=== PATIENT | female | born 1985 | race Caucasian/White ===

== ENCOUNTER 2018-02-11 11:40 | Emergency (ER) | payer MEDICAID, SELFPAY ==
[2018-02-11 11:41] VITALS: BP 127/80; PULSE 118; RESP 17; TEMP 37.2; O2SAT 97; BMI 24.2
[2018-02-11] MEDS: 0.9% Normal Saline 1,000 ML 1000 ML IV (12:36)
[2018-02-11] MEDS: Ondansetron 4 MG/2 ML Vial IV (12:36)
[2018-02-11 12:38] LABS: Absolute Lymphocyte Count 0.68 X10^3/ul (0.83-4.51); Absolute Neutrophil Count 7.9 X10^3/uL (2.0-7.7); Eosinophil# 0.02 X10^3/uL; Eosinophils% 0.2 % (0-5); Hematocrit 33.6 % (37-47); Hemoglobin 10.8 g/dl (12.0-15.0); Lymphocyte # 0.68 X10^3/ul (4.0); Lymphocyte % 7.7 % (19-41); Mean Corp Hgb Conc 32.1 g/gl (32-36); Mean Corpuscular Hgb 27.2 pg (27.0-32.0); Mean Corpuscular Volume 84.6 fL (81-99); Monocyte# 0.31 X10^3/uL; Monocyte% 3.5 % (0-10); Neutrophil # 7.86 X10^3/uL (2.7-7.7); Neutrophil % 88.5 % (47-70); Platelet Count 234 K/mm3 (150-450); RBC Distribution Width CV 13.4 % (11.6-14.6); RBC Distribution Width SD 40.4 fl (35.1-43.9); Red Blood Count 3.97 M/mm3 (4.2-5.4); White Blood Count 8.9 K/mm3 (4.4-11.0)
[2018-02-11 12:40] LABS: POSITIVE COUNT NO; POSITIVE DIFFERENTIAL NO; POSITIVE MORPHOLOGY NO
[2018-02-11 12:42] LABS: Anion Gap 10 (5-15); BUN 6 mg/dL (7-18); BUN/Creat Ratio 13.6 RATIO (10-20); Calcium,Total 8.2 mg/dL (8.5-10.1); Chloride 109 mmol/L (98-107); Creatinine, Serum 0.44 mg/dL (0.55-1.02); EST Glomerular Filtration Rate 176 mL/min (>60); Est Glom Filt Rate - Afr Amer 213 mL/min (>60); Estimated Creatinine Clearance 175.02 ml/min; Glucose 85 mg/dL (74-106); Potassium 3.7 mmol/L (3.5-5.1); Sodium Level 139 mmol/L (136-145)
--- NOTE | 2018-02-11 13:22 | ED.DCSUM_ITS ---
- ER Visit Summary Date of Service: 02/11/18 Chief Complaint: Nausea, vomiting, diarrhea History of Present Illness: The patient is a 32 F who is otherwise healthy. The emergency department nausea, vomiting, diarrhea. The patient is 34 weeks gestation. She is . She states that about 4 this morning, she woke with some mild abdominal cramping and nausea. She then had multiple bouts of loose watery diarrhea. Since then, she has had 3 episodes of vomiting and persistent diarrhea. She has not had blood in the diarrhea or the emesis. She denies any abdominal pain. She has had no vaginal bleeding or discharge. She is still feeling baby move. She denies any other systemic symptoms. Physical Examination: Vital signs reviewed General: Well-nourished, well-developed Head: Normocephalic, atraumatic Eyes: Pupils equal and reactive, extraocular muscles intact Neck, supple, no lymphadenopathy Heart: Regular rate and rhythm Respiratory: No distress, clear bilaterally Abdomen: Soft, nontender, nondistended, no peritoneal signs Back: Nontender Extremities: Nontender, no edema, no cords Skin: Normal color no rash Neuro: Alert and oriented, no focal or lateralizing deficits Test Results: [] Emergency Department Course and Treatment: The patient has a benign abdomen. She is gravid. I do feel that her symptoms are likely viral in nature. IV was established. Patient was given a liter of fluids and Zofran. Labs are unremarkable. With fluids and Zofran her symptoms have almost totally resolved. heart tones were obtained in the 150s and reactive. She is resting comfortably. At this time, due to the patient is safe for discharge. She will be given a short course of Zofran. She will follow up with OB as scheduled. Treatment Plan: [] Disposition: Discharge Impression:. Gastroenteritis This note was generated with [employer] dictation software. It may contain incorrect words, spelling, and punctuation that were not noted in review of the chart prior to signing ED Disposition - Plan for ED Patient: Chief Complaint: Nausea/Vomiting/Diarrhea Instructions: ED Gastroenteritis Viral Prescriptions: Ondansetron [Zofran Odt] 4 mg PO Q8H PRN PRN #10 tab PRN Reason: Nausea Referrals: Care Physician,No Primary [Primary Care Provider] -
[2018-02-11 13:46] VITALS: BP 116/80; PULSE 62; RESP 16; O2SAT 99
[2018-02-11] MEDS: Ondansetron ODT 4 MG Tablet PO (14:12)
== END 2018-02-11 14:11 | disposition home or self-care (01) ==
LOC: ED 12:49
PROVIDERS: Emergency Provider Emergency Medicine
DX: O99.89 Other specified diseases and conditions complicating pregnancy, childbirth and the puerperium (principal); K52.9 Noninfective gastroenteritis and colitis, unspecified; Z3A.34 34 weeks gestation of pregnancy
CPT/HCPCS: 80048; 85025; 96374; 99283; J7030; J2405

== ENCOUNTER 2018-03-31 07:10 | Inpatient (IN) | payer MEDICAID, SELFPAY ==
[2018-03-31 07:20] VITALS: BMI 26.1
[2018-03-31] MEDS: Lactated Ringers 1,000 ML 50 ML IV ×3 (07:40→16:46)
[2018-03-31] MEDS: Oxytocin 30 units/NS 500 ml 30 UNITS/500 ML IV.SOLN IV (07:50)
[2018-03-31 07:58] LABS: Hematocrit 35.7 % (37-47); Hemoglobin 11.3 g/dl (12.0-15.0); Mean Corp Hgb Conc 31.7 g/gl (32-36); Mean Corpuscular Hgb 26.5 pg (27.0-32.0); Mean Corpuscular Volume 83.8 fL (81-99); Mean Platelet Vol. 9.8 fl (6.2-12.0); Platelet Count 221 K/mm3 (150-450); RBC Distribution Width CV 17.5 % (11.6-14.6); RBC Distribution Width SD 53.5 fl (35.1-43.9); Red Blood Count 4.26 M/mm3 (4.2-5.4); White Blood Count 7.3 K/mm3 (4.4-11.0)
[2018-03-31 08:04] LABS: Scan Indicated on CBC? Y/N NO
--- NOTE | 2018-03-31 10:19 | PCM.HP.OB ---
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 Allergies No Known Allergies Allergy (Verified 03/31/18 07:57) Home Medications: Home Medications Docusate Sodium [Colace] 100 mg PO DAILY 01/24/14 Ferrous Sulfate [Iron Supplement] 325 mg PO DAILY 01/24/14 Pnv No.122/Iron/Folic Acid [ Multi Tablet] 1 each PO DAILY 02/11/18 L.acidoph,Paracasei, B.lactis [Probiotic] 1 each PO 03/31/18 PNV, Iron Supp Smoking Status: Never smoker Alcohol: None Number of Fetus(es): 1 Heart Tracing: Baseline 125, moderate variability, + accels, no decels TOCO Analysis: Ctx q 2-5 minutes palpating mild to moderately strong History Past Pregnancies: Past Pregnancies Delivery Date Name GA/Weeks Outcome Route Weight Gender Labor Length Anesthesia Delivery Location Provider FOB 01/25/14 41+1wks Live VAVD 9#3oz Male Epidural [facility] Labs: A+; Abs = Neg screen; Urine Culture = Neg; Urine Tox = Neg; GC/CT = Neg/Neg; Pap = HSIL/+HPV (type 16 +); Zika IgG = Neg; 1st sequential screen = +DS risk (1:50) ===> NIPS = 46XX GBS neg; H/H = 11.4/34.3 --> 9.9/32.2 --> 9.9/33.2; Plt = 244; 1 hour GCT = 99; AFP = Neg Screen; Syphilis = NR; Rubella = Immune; Hep B = Neg; HIV = NR Expected Infant Delivery Method: Spontaneous Vaginal Describe any other labor & delivery plans:: Patient plans for epidural. Desires . Number of Visits: 16 Review of Systems Constitutional: Denies: Chills, Fever, Weight Change HEENT: Denies: Head Aches, Sinus Congestion, Sinus Drainage Cardiovascular: Denies: Chest Pain, Palpitations Respiratory: Denies: Cough, Shortness of breath at rest, Sputum production Gastrointestinal: Denies: Abdominal Pain, Nausea, Vomiting Genitourinary: Denies: Dysuria Musculoskeletal: Denies: Joint Pain, Joint Tenderness Skin: Denies: Rash, Wounds Neurological: Denies: Numbness, Tingling, Focal weakness Psychiatric: Denies: Anxiety, Depression, Homicidal Ideations, Suicidal Ideations Hematologic/ Lymphatic: Denies: Easy Bruising, Easy Bleeding Physical Exam Vitals: See Nursing Note for Vitals - Normotensive and Afebrile General: Alert, Oriented x3, No apparent distress HEENT: Atraumatic, Normocephalic. Negative for: Thyromegaly, Lymphadenopathy Cardiovascular: Regular rate, Regular Rhythm Lungs: Normal air movement Abdomen: Soft, Gravid, Appropriate for Gestational Age Extremities:: No edema Neurological: Deep Tendon Reflexes 2+/4 and Symmetrical, Neuro grossly intact MANAGER FRAUD: Normal external genitalia. Negative for: Vulvar lesions Estimated gestational size: Appropriate for gestational size Presentation: Cephalic Cervix Dilation (cm): 3 Station: -2 Effacement (%): 50 Assessment/Plan All Active Problems Post-term , 40-42 weeks of gestation (Acute) Anemia affecting (Acute) HSIL (high grade squamous intraepithelial lesion) on Pap smear of cervix (Acute) This is a 33 year-old, G [], P [], at 40 weeks gestational age.
--- NOTE | 2018-03-31 10:23 | HP.PCM_ITS ---
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 Allergies No Known Allergies Allergy (Verified 03/31/18 07:57) Home Medications: Home Medications Docusate Sodium [Colace] 100 mg PO DAILY 01/24/14 Ferrous Sulfate [Iron Supplement] 325 mg PO DAILY 01/24/14 Pnv No.122/Iron/Folic Acid [ Multi Tablet] 1 each PO DAILY 02/11/18 L.acidoph,Paracasei, B.lactis [Probiotic] 1 each PO 03/31/18 PNV, Iron Supp Smoking Status: Never smoker Alcohol: None Number of Fetus(es): 1 Heart Tracing: Baseline 125, moderate variability, + accels, no decels TOCO Analysis: Ctx q 2-5 minutes palpating mild to moderately strong History Past Pregnancies: Past Pregnancies Delivery Date Name GA/Weeks Outcome Route Weight Gender Labor Length Anesthesia Delivery Location Provider FOB 01/25/14 41+1wks Live VAVD 9#3oz Male Epidural [facility] Labs: A+; Abs = Neg screen; Urine Culture = Neg; Urine Tox = Neg; GC/CT = Neg/Neg; Pap = HSIL/+HPV (type 16 +); Zika IgG = Neg; 1st sequential screen = +DS risk (1 :50) ===> NIPS = 46XX GBS neg; H/H = 11.4/34.3 --> 9.9/32.2 --> 9.9/33.2; Plt = 244; 1 hour GCT = 99 ; AFP = Neg Screen; Syphilis = NR; Rubella = Immune; Hep B = Neg; HIV = NR Expected Delivery Method: Spontaneous Vaginal Describe any other labor & delivery plans:: Patient plans for epidural. Desires . Number of Visits: 16 Review of Systems Constitutional: Denies: Chills, Fever, Weight Change HEENT: Denies: Head Aches, Sinus Congestion, Sinus Drainage Cardiovascular: Denies: Chest Pain, Palpitations Respiratory: Denies: Cough, Shortness of breath at rest, Sputum production Gastrointestinal: Denies: Abdominal Pain, Nausea, Vomiting Genitourinary: Denies: Dysuria Musculoskeletal: Denies: Joint Pain, Joint Tenderness Skin: Denies: Rash, Wounds Neurological: Denies: Numbness, Tingling, Focal weakness Psychiatric: Denies: Anxiety, Depression, Homicidal Ideations, Suicidal Ideations Hematologic/ Lymphatic: Denies: Easy Bruising, Easy Bleeding Physical Exam Vitals: See Nursing Note for Vitals - Normotensive and Afebrile General: Alert, Oriented x3, No apparent distress HEENT: Atraumatic, Normocephalic. Negative for: Thyromegaly, Lymphadenopathy Cardiovascular: Regular rate, Regular Rhythm Lungs: Normal air movement Abdomen: Soft, Gravid, Appropriate for Gestational Age Extremities:: No edema Neurological: Deep Tendon Reflexes 2+/4 and Symmetrical, Neuro grossly intact PRINTING BINDERY ASSISTANT: Normal external genitalia. Negative for: Vulvar lesions Estimated gestational size: Appropriate for gestational size Presentation: Cephalic Cervix Dilation (cm): 3 Station: -2 Effacement (%): 50 Assessment/Plan All Active Problems Post-term , 40-42 weeks of gestation (Acute) Anemia affecting (Acute) HSIL (high grade squamous intraepithelial lesion) on Pap smear of cervix (Acute) This is a 33 year-old, G [], P [], at 40 weeks gestational age.
[2018-03-31] MEDS: fentaNYL-bupivacaine (epidural) 100 ML BAG EPIDURAL ×2 (11:35→17:20)
--- NOTE | 2018-03-31 13:43 | PCM.PN.OB ---
Patient Problems: Active and Suspected Problems Post-term , 40-42 weeks of gestation (Acute) Anemia affecting (Acute) HSIL (high grade squamous intraepithelial lesion) on Pap smear of cervix (Acute) Subjective: Patient comfortable after receiving epidural, patient reports pain is well controlled. Discussion re: cervical assessment and possible AROM discussed with patient at this time. Patient is interested in this option. Objective: VSS, Afebrile. Hgb on admission = 11.3 FHT baseline 125, moderate variability, + accels, no decels noted Ctx q 2-5 palpate moderately strong. SVE = 4/60/-2 between ctx and 5/70/-1 to -2 during ctx. AROM for copious clear fluid. EFW = 8# - Physical Exam General: Alert, Oriented x3, Cooperative HEENT: Atraumatic, Normocephalic Neck: Supple Lungs: Normal air movement Cardiovascular: Regular rate, No murmurs Abdomen: Soft, Non Tender Extremities: No edema, Capillary Refill Less than 3 Seconds Skin: No rashes, No breakdown Musculoskeletal: No Tenderness to Palpation of Joints or Extremities Neurological: Cranial nerves II-XII grossly intact Psych/Mental Status: Normal Affect, Appropriate Weight: 157 lb Body Mass Index (BMI) 26.1 Laboratory Tests Past 24 Hrs 03/31/18 03/31/18 07:40 07:40 WBC 7.3 RBC 4.26 Hgb 11.3 L Hct 35.7 L MCV 83.8 MCH 26.5 L MCHC 31.7 L RDW 17.5 H RDW Differential 53.5 H Plt Count 221 MPV 9.8 Blood Type A POSITIVE Antibody Screen NEGATIVE Medical Necessity - Tobacco Use Smoking Status: Never smoker Assessment/Plan All Active Problems Post-term , 40-42 weeks of gestation (Acute) Anemia affecting (Acute) HSIL (high grade squamous intraepithelial lesion) on Pap smear of cervix (Acute) A: 33 y/o @ 40.6 wks, Pitocin IOL for Posterm , AROM Labor Augmentation, Category I FHT P: 1) Continue titration of IV pitocin per protocol 2) Encourage position changes 3) Anticipate Mariely Mata APRN-CNM
--- NOTE | 2018-03-31 16:58 | PN.OBGYN_ITS ---
Patient Problems: Active and Suspected Problems Post-term , 40-42 weeks of gestation (Acute) Anemia affecting (Acute) HSIL (high grade squamous intraepithelial lesion) on Pap smear of cervix (Acute) Subjective: Patient starting to feel increased rectal pressure, patient denies urge to bear down and push. Patient also starting to feel increase in nausea; requesting medication for nausea at this time to help decrease her symptoms. Objective: FHT baseline 120 mild to moderate variability, + accels, early decels noted with some ctx Ctx q 2-3 minutes, palpate moderate to strong SVE by staff research associate = /, continued clear fluid noted - Physical Exam General: Alert, Oriented x3, Cooperative HEENT: Atraumatic, Normocephalic Neck: Supple Lungs: Normal air movement Cardiovascular: Regular rate, No murmurs Abdomen: Soft, Non Tender Extremities: No edema, Capillary Refill Less than 3 Seconds Skin: No rashes, No breakdown Musculoskeletal: No Tenderness to Palpation of Joints or Extremities Neurological: Cranial nerves II-XII grossly intact Psych/Mental Status: Normal Affect, Appropriate, Alert and oriented to time, place, person, mood and affect Weight: 157 lb Body Mass Index (BMI) 26.1 Intake and Output for Last 24 Hours 03/29/18 03/30/18 03/31/18 23:59 23:59 23:59 Intake Total 3063 / 3063 Output Total 400 / 400 Balance 2663 / 2663 Laboratory Tests Past 24 Hrs 03/31/18 03/31/18 07:40 07:40 WBC 7.3 RBC 4.26 Hgb 11.3 L Hct 35.7 L MCV 83.8 MCH 26.5 L MCHC 31.7 L RDW 17.5 H RDW Differential 53.5 H Plt Count 221 MPV 9.8 Blood Type A POSITIVE Antibody Screen NEGATIVE Medical Necessity - Tobacco Use Smoking Status: Never smoker Assessment/Plan All Active Problems Post-term , 40-42 weeks of gestation (Acute) Anemia affecting (Acute) HSIL (high grade squamous intraepithelial lesion) on Pap smear of cervix (Acute) A: 33 y/o @ 40.6 weeks, postdates IOL, Category I-II FHT P: 1) Zofran 4mg IV push for patient's nausea 2) Dr. Nagel updated on patient status 3) Anticipate Mariely Mata RADIO ENGINEER-CNM
[2018-03-31] MEDS: Ondansetron 4 MG/2 ML Vial IV (17:09)
--- NOTE | 2018-03-31 17:35 | PCM.PN.OB ---
Patient Problems: Active and Suspected Problems Post-term , 40-42 weeks of gestation (Acute) Anemia affecting (Acute) HSIL (high grade squamous intraepithelial lesion) on Pap smear of cervix (Acute) Subjective: Patient reports continued sensation of pelvic pressure on and off, patient requests a SVE check. Objective: FHT baseline 120, minimal to moderate variability, + accels, few early decels Ctx q 2 minutes, palpate strong, pitocin is off at this time SVE = 10/100/0 to +1 station - Physical Exam Weight: 157 lb Body Mass Index (BMI) 26.1 Intake and Output for Last 24 Hours 03/29/18 03/30/18 03/31/18 23:59 23:59 23:59 Intake Total 3063 / 3063 Output Total 400 / 400 Balance 2663 / 2663 Laboratory Tests Past 24 Hrs 03/31/18 03/31/18 07:40 07:40 WBC 7.3 RBC 4.26 Hgb 11.3 L Hct 35.7 L MCV 83.8 MCH 26.5 L MCHC 31.7 L RDW 17.5 H RDW Differential 53.5 H Plt Count 221 MPV 9.8 Blood Type A POSITIVE Antibody Screen NEGATIVE Medical Necessity - Tobacco Use Smoking Status: Never smoker Assessment/Plan All Active Problems Post-term , 40-42 weeks of gestation (Acute) Anemia affecting (Acute) HSIL (high grade squamous intraepithelial lesion) on Pap smear of cervix (Acute) A: 33 y/o @ 40.6wks, Second Stage of Labor P: 1) Patient to labor down at this time 2) Start to push with maternal urge 3) Anticipate Mariely ALBERTO
[2018-03-31] MEDS: Oxytocin 30 units/NS 500 ml 30 UNITS/500 ML IV.SOLN 334 UNITS IV (18:15)
[2018-03-31] MEDS: Lactated Ringers 1,000 ML 15 ML IV (18:15)
--- NOTE | 2018-03-31 18:40 | OP.PCM_ITS ---
- Problem List (1) Post-term , 40-42 weeks of gestation Status: Resolved (2) Anemia affecting Status: Resolved (3) HSIL (high grade squamous intraepithelial lesion) on Pap smear of cervix Status: Acute Vaginal Delivery Maternal Presentation: Medically Indicated Induction, Elective Induction Method of Induction: Pitocin, Amniotomy Medical Reason for Induction: Post term Amniotic Membrane Rupture Type: Artificial Amniotic Fluid Description: Clear Final FATUMA: 03/25/18 Gestational age: 40 Weeks and 6 Days Date of Procedure: 03/31/18 Pre-Operative Diagnosis: IOL @ 40.6 weeks Post-Operative Diagnosis: Viable delivery of viable girl Surgery/ Procedure Performed: Spontaneous Vaginal Delivery Anesthesiologist: Charisse Rangel Type of Anesthesia: Epidural Description of Procedure: Patient found to be complete and labored down for 30 minutes until she started to feel urge to bear down. Patient delivered viable female baby over intact perineum at 1804. Infant head delivered OA and then restituted to AMPARO and then LOT. Anterior shoulder then delivered spontaneously followed by posterior shoulder and body. Infant placed on maternal abdomen where the baby was dried and stimulated. Mouth and nose bulb suctioned. had spontaneous cry and respirations. Apgars 8 and 9. Umbilical cord clamped and cut once it stopped pulsing. Placenta then delivered spontaneously via Ash mechanism once signs of placental separation noted. Placenta intact with 3VC. FF midline to massage 3FB below umbilicus. EBL = 100cc. Upon inspection of vaginal vault, no lacerations noted so no repair was done. Sponge count correct. Vaginal sweep negative. Baby to breast and bonding initiated. Dr. Robe TA notified of uncomplicated delivery. Mariely Mata [facility]CNM Presentation: Vertex, AMPARO Placental Delivery Description: Spontaneous Placenta Disposition: [facility] Cord Vessel Description: 3 Vessels Cord Entanglement: None Estimated Blood Loss: 100 A gender: Female (1 minute): 8 (5 minute): 9 Episiotomy Description: None Laceration: None Medications given after delivery: IV Pitocin Complications: None
--- NOTE | 2018-03-31 18:41 | DCINST_ITS ---
Discharge Diet: No Restrictions Discharge Activity: Return to Normal Activity, May not drive while taking narcotic pain medications., May Shower May resume sexual activity in: 4-6 weeks Additional Activity Instructions:: Nothing in the vagina for 4-6 weeks. You may return to work/school in 6 weeks. Call your doctor if your incision/area has: Continuous Slow Oozing, Sudden Increased Bleeding, Increased Pain/ Swelling, Increased Redness, Foul Smelling Discharge Call your doctor if you observe: Fever of 101 or Higher, Inability to urinate, Inability to have a bowel movement, Using more than one pad per hour Additional Instructions: If you experience any of the following, contact your healthcare provider. * Bleeding that soaks a pad every hour for 2 hours * Fever 100.4 or higher * Unrelieved incision or abdominal pain * Swelling, redness, discharge or bleeding from your incision or episiotomy site * Your incision begins to separate * Problems urinating (including inability to urinate or burning while urinating) . * Visual changes * Severe headache * Flu-like symptoms * Pain or redness in one of both of your breasts * Pain, warmth, tenderness or swelling in your legs, especially the calf area * Frequent nausea and vomiting * Symptoms of depression or anxiety If you experience any of the following, call 911 or go to the nearest Emergency Room. * Chest pain * Problems breathing * Seizure activity * Partial or complete paralysis of a body part, slurred speech, weakness or drooping of the face, or a sudden inability to walk or hold your balance Allergies/Adverse Reactions: Allergies No Known Allergies Allergy (Verified 03/31/18 07:57) Medications to take at Discharge Docusate Sodium [Colace] 100 mg PO DAILY 01/24/14 Ferrous Sulfate [Iron Supplement] 325 mg PO DAILY 01/24/14 Pnv No.122/Iron/Folic Acid [ Multi Tablet] 1 each PO DAILY 02/11/18 L.acidoph,Paracasei, B.lactis [Probiotic] 1 each PO 03/31/18 Please Follow Up With: Mariely Mata CNM When: Call to make an appointment with your doctor in 6 weeks. If you had elevated Blood Pressure or 4th degree laceration you will need to be seen in 2 weeks. Primary Care Physician: Care Physician,No Primary [Primary Care Provider] - Test Results: Test results from this visit will be discussed in further detail at your follow- up appointment, if applicable. Proposed Discharge Date: 04/01/18
[2018-03-31] MEDS: Oxytocin 30 units/NS 500 ml 30 UNITS/500 ML IV.SOLN 167 UNITS IV (18:45)
[2018-03-31] MEDS: Ibuprofen 600 MG Tablet PO (20:29)
[2018-03-31] MEDS: Senna/Docusate Sodium 1 Tablet PO (20:29)
[2018-03-31 22:00] VITALS: BP 118/77; PULSE 73; RESP 16; TEMP 36.7
[2018-04-01 00:30] VITALS: BP 118/85; PULSE 82; RESP 17; O2SAT 98
[2018-04-01 04:00] VITALS: BP 132/89; PULSE 82; RESP 18; O2SAT 100
[2018-04-01] MEDS: Ibuprofen 600 MG Tablet PO ×3 (04:21→16:57)
--- NOTE | 2018-04-01 07:31 | PCM.PN.OB ---
Patient Problems: Active and Suspected Problems HSIL (high grade squamous intraepithelial lesion) on Pap smear of cervix (Acute) Subjective: pain well controlled, average lochia - Physical Exam General: Alert, Cooperative, No apparent distress Vital Signs Temp Pulse Resp BP Pulse Ox 98.0 F 82 18 132/89 H 100 03/31/18 22:00 04/01/18 04:00 04/01/18 04:00 04/01/18 04:00 04/01/18 04:00 Oxygen Delivery Method Room Air Weight: 71.214 kg Body Mass Index (BMI) 26.1 Intake and Output for Last 24 Hours 03/30/18 03/31/18 04/01/18 23:59 23:59 23:59 Intake Total 4617 / 4617 Output Total 700 / 700 Balance 3917 / 3917 Laboratory Tests Past 24 Hrs 03/31/18 03/31/18 07:40 07:40 WBC 7.3 RBC 4.26 Hgb 11.3 L Hct 35.7 L MCV 83.8 MCH 26.5 L MCHC 31.7 L RDW 17.5 H RDW Differential 53.5 H Plt Count 221 MPV 9.8 Blood Type A POSITIVE Antibody Screen NEGATIVE Medical Necessity - Tobacco Use Smoking Status: Never smoker Assessment/Plan All Active Problems Post-term , 40-42 weeks of gestation (Resolved) Anemia affecting (Resolved) HSIL (high grade squamous intraepithelial lesion) on Pap smear of cervix (Acute) PPD#1 s/p infant and doing well would like to be d/jenna home today if ok w/ peds
[2018-04-01 08:00] VITALS: BP 126/87; PULSE 90; RESP 20; TEMP 37.1
[2018-04-01 12:00] VITALS: BP 118/74; PULSE 85; RESP 16; TEMP 37.3
[2018-04-01 16:00] VITALS: BP 114/79; PULSE 86; RESP 16; TEMP 36.8
[2018-04-01 20:32] VITALS: BP 128/86; PULSE 90; RESP 18; TEMP 36.6; O2SAT 99
== END 2018-04-01 21:00 | disposition home or self-care (01) | DRG 373 ==
PROVIDERS: Admitting Provider Obstetrics & Gynecology; Visit Provider Obstetrics & Gynecology
DX: O48.0 Post-term pregnancy (principal); O99.02 Anemia complicating childbirth; Z37.0 Single live birth; R87.613 High grade squamous intraepithelial lesion on cytologic smear of cervix (HGSIL); Z3A.40 40 weeks gestation of pregnancy; D64.9 Anemia, unspecified
CPT/HCPCS: 59025; 59050; 85027; 86850; 86900; 99218; J7120; G0378; J2405

== ENCOUNTER 2019-05-30 11:35 | Emergency (ER) | payer MEDICAID, SELFPAY ==
[2019-05-30 11:38] VITALS: BP 130/73; PULSE 103; RESP 17; TEMP 37.2; O2SAT 99; BMI 24.0
--- NOTE | 2019-05-30 12:38 | RAD_ITS ---
STUDY: X-RAY CHEST REASON FOR EXAM: Female, 34 years old. Left upper back pain. Tingling in the left arm. TECHNIQUE: PA and lateral views of the chest. COMPARISON: None. FINDINGS: The lungs are clear and expanded. There is no demonstrated pleural abnormality. Normal size heart. Normal mediastinum and tano. Normal visualized pulmonary arteries. Normal visualized aortic arch and descending thoracic aorta. There is a mild dextroscoliosis of the thoracic spine. Normal visualized ribs, clavicles, and shoulders. There is no demonstrated abnormality of the visualized soft tissue structures of the upper abdomen. RAD/Chest PA and Lateral IMPRESSION: Normal x-ray examination of the chest. Electronically Signed: Jadon Pyle, at 13:05 EDT , Service support ,
[2019-05-30 12:47] LABS: Absolute Lymphocyte Count 2.94 X10^3/uL (0.83-4.51); Absolute Neutrophil Count 3.8 X10^3/uL (2.0-7.7); Basophil# 0.02 X10^3/uL; Basophil% 0.3 % (0-1); Eosinophil# 0.17 X10^3/uL; Eosinophils% 2.3 % (0-5); Hematocrit 39.3 % (37-47); Hemoglobin 12.5 g/dL (12.0-15.0); Lymphocyte # 2.94 X10^3/ul (4.0); Lymphocyte % 39.4 % (19-41); Mean Corp Hgb Conc 31.8 g/dL (32-36); Mean Corpuscular Hgb 28.7 pg (27.0-32.0); Mean Corpuscular Volume 90.3 fL (81-99); Mean Platelet Vol. 9.2 fl (6.2-12.0); Monocyte# 0.54 X10^3/uL; Monocyte% 7.2 % (0-10); NRBC Flagged by Analyzer 0 % (0-5); Neutrophil # 3.79 X10^3/uL (2.7-7.7); Neutrophil % 50.7 % (47-70); POSITIVE MORPHOLOGY YES; Platelet Count 214 K/mm3 (150-450); RBC Distribution Width CV 11.2 % (11.6-14.6); RBC Distribution Width SD 37.1 fl (35.1-43.9); Red Blood Count 4.35 M/mm3 (4.2-5.4); White Blood Count 7.5 K/mm3 (4.4-11.0)
[2019-05-30 12:53] LABS: Anion Gap 3 (5-15); BUN 13 mg/dL (7-18); BUN/Creat Ratio 18.6 RATIO (10-20); Calcium,Total 8.7 mg/dL (8.5-10.1); Chloride 108 mmol/L (98-107); EST Glomerular Filtration Rate 103 mL/min (>60); Est Glom Filt Rate - Afr Amer 125 mL/min (>60); Estimated Creatinine Clearance 103.82 ml/min; Glucose 85 mg/dL (74-106); Potassium 4.2 mmol/L (3.5-5.1); Sodium Level 138 mmol/L (136-145)
[2019-05-30 12:54] LABS: Differential Indicated SCAN CRITERIA MET
[2019-05-30 12:55] LABS: D-Dimer Quantitative (DVT/PE) < 0.27 FEU/ug/m (0.27-0.49)
--- NOTE | 2019-05-30 13:08 | ED.VISSUMM ---
- ER Visit Summary Date of Service: 05/30/19 Chief Complaint: Back pain History of Present Illness: The patient is a 34 F who presents with back pain that began yesterday. Patient states the pain started in the left posterior thoracic area and radiates around to the left chest area today. Patient states the pain is worse with laying down, breathing, and laughing. Patient describes the pain is sharp. Patient states the pain is been constant. Patient states nothing seems to help with the pain. Patient denies any nausea or vomiting. Patient does admit to some shortness of breath because of the pain. Patient states her last menstrual period started yesterday. Patient states she did have some paresthesias in her left arm that have resolved. Physical Examination: Vital signs are stable except for slight tachycardia of 103. Patient is afebrile. Patient is in no acute distress. Oral mucosa is pink and moist. Neck is supple. Trachea is midline. There is no JVD noted. Heart was regular rate and rhythm. Lungs are clear and equal bilaterally. There is good respiratory effort noted. There is no reproducible tenderness over the left posterior or anterior ribs. There is no bony crepitance or step-off. Abdomen is soft. Bowel sounds are normal. There is no tenderness. Cranial nerves II through XII are intact. There are no focal motor or sensory deficits noted. Test Results: CBC and basic metabolic profile within normal limits. D-dimer was obtained was negative. PA and lateral chest x-ray was obtained. There is no acute cardiopulmonary process. Emergency Department Course and Treatment: Patient was given an injection of Toradol here. Patient was advised that this is most likely musculoskeletal. Patient was instructed to take Tylenol or ibuprofen as needed for pain. She was instructed to follow-up with her primary care physician in 5 to 7 days. Patient understood and was agreeable with the plan. All questions were answered. Disposition: Discharge home Impression: Left chest pain This note was generated with [employer] dictation software. It may contain incorrect words, spelling, and punctuation that were not noted in review of the chart prior to signing ED Disposition - Plan for ED Patient: Disposition: Home or Assisted Living Diagnosis: Left-sided chest pain Instructions: Chest Wall Strain Referrals: Care Physician,No Primary [Primary Care Provider] -
[2019-05-30] MEDS: Ketorolac 30 MG/ML Syringe IV (14:00)
[2019-05-30 14:04] VITALS: BP 114/82; PULSE 89; RESP 16; O2SAT 100
--- NOTE | 2019-05-30 14:05 | ED.RN ---
IV DC'ED, CATHETER INTACT, SMALL GAUZE DRESSING PLACED. DISCHARGE INSTRUCTIONS GIVEN TO AND REVIEWED WITH PATIENT, PATIENT DENIES QUESTIONS OR CONCERNS AND VOICES UNDERSTANDING OF DISCHARGE INSTRUCTIONS. PT AMBULATES OUT OF ROOM WITHOUT DIFFICULTY.
== END 2019-05-30 14:05 | disposition home or self-care (01) ==
PROVIDERS: Emergency Provider Emergency Medicine
DX: R07.89 Other chest pain (principal); R06.00 Dyspnea, unspecified; H53.9 Unspecified visual disturbance; M54.9 Dorsalgia, unspecified; R20.2 Paresthesia of skin
CPT/HCPCS: 71046; 80048; 85025; 85379; 96374; 99283; A4216

== ENCOUNTER 2020-03-05 10:24 | Emergency (ER) | payer MEDICAID, SELFPAY ==
[2020-03-05 10:26] VITALS: BP 105/76; PULSE 107; RESP 18; TEMP 36.5; O2SAT 97; BMI 22.4
--- NOTE | 2020-03-05 10:48 | ED.VIS.GEN ---
History of Present Illness Chief Complaint: Nausea/Vomiting Informant: Patient Onset: Yesterday Current Severity: Mild Maximum Severity: Mild Narrative: 35-year-old female G3, P2 a 0 currently 11 weeks presents with nausea and vomiting over the last 3 days. She states that she has experienced some nausea in her previous pregnancies but she does not usually vomit. She states that when she started ate Starburst candy and immediately vomited. She not been able to hold down fluids very much overnight. She called her THEATER PROJECTIONIST yesterday who stated if it last more than 24 hours she should go to the emergency room. They did not call her in any antiemetics. Past Medical History - Allergies and Home Meds Allergies/Adverse Reactions: Allergies No Known Allergies Allergy (Verified 03/05/20 10:25) Primary Care Physician: Care Physician,No Primary [Primary Care Provider] - Prior records reviewed: Yes Lives: Spouse/ Significant Other Smoking Status: Never smoker Review of Systems All systems negative except as indicated General: Reports: Chills, Fever Eyes: Denies: Visual changes - left, Blurred vision - left Cardiovascular: Denies: Chest pain, Palpitations Respiratory: Denies: Dyspnea, Cough Gastrointestinal: Reports: Nausea, Vomiting. Denies: Abdominal pain, Diarrhea, Constipation Genitourinary: Denies: Dysuria, Hematuria Musculoskeletal: Denies: Myalgias Skin: Denies: Rash Physical Exam Vital Signs/Narrative: Vital Signs Temp Pulse Resp BP Pulse Ox 03/05/20 10:26 97.7 F L 107 H 18 105/76 97 Inital Vital Signs reviewed: Yes General: Well nourished, Well developed Head: Normocephalic, Atraumatic Eyes: Perrl, EOMI ENT: Moist mucous membranes Neck: Supple, Nontender Cardiovascular: Regular rate, Regular rhythm Respiratory: No distress, CTA bilaterally Abdomen: Soft, Nontender, Nondistended Skin: Normal color Neurological: Alert, Oriented x3 Psychological: Normal affect Diagnostic/Tx/Re-eval - Medical Decision Making Patient presents with nausea vomiting and . She states that she feels dehydrated as well. She has not had any vaginal complaints. After discussion she did notice that she was having urinary symptoms. This is consistent with UTI. She will be started on Keflex here. Given IV fluids and Zofran here and feels improved. She will be given Zofran for home. She will follow-up outpatient with her THEATER PROJECTIONIST. ED Disposition - Plan for ED Patient: Disposition: Home or Assisted Living Diagnosis: UTI (urinary tract infection), Hyperemesis gravidarum, Dehydration Instructions: ED Nausea Vomiting Adult, ED Dehydration Adult, ED CYSTITIS Female Adult Referrals: Care Physician,No Primary [Primary Care Provider] -
[2020-03-05 11:22] LABS: Red Blood Cells-Urine 0 SEEN /hpf (0-5)
[2020-03-05] MEDS: 0.9% Normal Saline 1,000 ML 999 ML IV (11:25)
[2020-03-05] MEDS: Ondansetron 4 MG/2 ML Vial IV (11:25)
[2020-03-05 11:29] LABS: Color, Urine Yellow (Yellow); Glucose, Dipstick Normal (Normal); Leukocyte Esterase-Dipstick 25 /ul (Negative); Nitrite-Dipstick Negative (Negative); Occult Blood-Urine Negative /ul (Negative); Protein-Dipstick 30 mg/dl (Negative); Specific Gravity, Urine 1.025 (1.002-1.030); Urine Bilirubin Dipstick Negative (Negative); Urine Clarity Sl. Cloudy (Clear); Urine Urobilinogen 1 mg/dl (Normal)
[2020-03-05 11:36] LABS: Ketone-Dipstick 150 mg/dl (Negative)
[2020-03-05 11:37] LABS: Bacteria 1+ /hpf (None Seen); Mucous, Urine 1+ /hpf (<or=2+); Squamous Epithelial Cells - UA 0-5 SEEN /hpf (5-10); White Blood Cells 0-5 SEEN /hpf (0-5)
[2020-03-05] MEDS: Cephalexin 250 MG Capsule 500 MG PO (13:20)
[2020-03-05 13:24] VITALS: BP 112/90; PULSE 107; RESP 14; O2SAT 99
== END 2020-03-05 13:26 | disposition home or self-care (01) ==
LOC: ED 12:12
PROVIDERS: Emergency Provider Student in an Organized Health Care Education/Training Program
DX: O21.1 Hyperemesis gravidarum with metabolic disturbance (principal); O23.41 Unspecified infection of urinary tract in pregnancy, first trimester; Z3A.11 11 weeks gestation of pregnancy
CPT/HCPCS: 81001; 96361; 96374; 99283; J7030; J2405

== ENCOUNTER → 2020-06-07 10:00 | Outpatient (CLI) | payer MEDICAID, SELFPAY | PROVIDERS: Visit Provider Nurse Practitioner Family | DX: Z03.818 Encounter for observation for suspected exposure to other biological agents ruled out (principal); B34.9 Viral infection, unspecified | CPT/HCPCS: 87635; C9803; U0003 ==

== ENCOUNTER 2020-07-26 08:30 | Outpatient (RCR) | payer MEDICAID, SELFPAY ==
--- NOTE | 2020-07-26 09:00 | BH.SGPN.GN ---
Behaviors/Verbalizations/Mental Status: []Client alert and oriented, casually dressed. Eye contact fair. Motor activity appropriate. Speech within normal limits. Affect congruent, mood anxious. Thoughts linear, logical, no signs of hallucinations or delusions. Reviewed client?s symptom tracker, no risk or plan for suicide ideation as of 07/26/20. Client Response/Progress/Benefit: []Client responded well to session, engaged and participated throughout discussion. Client reported feeling ?stretched thin? after her first day check in for IOP program. Client endorses passive suicidal thoughts, increased anxiety, and unable to control negative thoughts. Client shared she is with her third child and does not like being . She stated being unemployed after finishing school and passing the BAR has contributed to depression and anxiety. Progress noted as client was vulnerable and opened up to group members about stressors. Benefited from group as other group members gave positive feedback about treatment and expectations from IOP as a whole. Client will continue IOP to prevent decompensation, reduce negative thoughts, and increase the use of healthy coping skills. Narrative Note: []
--- NOTE | 2020-07-26 09:00 | BH.COMM_ITS ---
Communication Note - Communication with Client Communication Note: Met with pt to completed inital paperwork. No significant changes since pre-admission screeing. Completed [place] Suicide Screening. Pt presents with moderate risk. Reports an a very intense suicidal thoughts with intent and methods about 3-4 weeks ago, however protective factors kept her from following through. No SI since then.
--- NOTE | 2020-07-26 10:19 | BH.SGPN.GN ---
Behaviors/Verbalizations/Mental Status: []Client alert and oriented, neatly dressed and groomed. Eye contact good. Motor activity appropriate. Speech within normal limits. Affect congruent, mood anxious and dysthymic. Thoughts linear, logical, no signs of hallucinations or delusions. Client Response/Progress/Benefit: []Client was an attentive participant in group discussion and active during activity. Client agreed with peers that there are internal and external forces in life which impact personal growth. Group worked together to come up with common negative forces in life which can hold them back from growth. These included; cognitive distortions, toxic people, not setting boundaries, and holding in emotions. Group then worked together to identify common positive forces which help them grow. These included; healthy coping skills, positive support, positive self-talk, and self-care. Client took a leadership role during the activity and did well to communicate effectively with peers. Benefited AEB increased insight and awareness on the impact of negative and positive forces on mental wellness. First day of IOP tx. Will continue IOP tx to prevent decompensation, learn and apply healthy coping skills, and maintain safety. Narrative Note: []
--- NOTE | 2020-07-26 13:18 | BH.MTP_ITS ---
Master Treatment Plan - Patient Information Program Physician:: Dr. Rascon Primary Therapist:: Mckayla Alvares, [facility] - Psychiatric Diagnoses Psychiatric Diagnoses:: Major depressive disorder, recurrent, severe without psychosis; anxiety disorder, NOS Diagnosis Code(s):: F33.2 - Estimated LOS Estimated LOS (in weeks):: 6 Problem/Goal #1 - Problem/Goal #1 Stated Goal:: Client will reduce depressive symptoms, feelings of worthlessness, and suicidal thoughts due to Major Depressive Disorder through Intensive Outpatient Program. Description of Barriers: Pt's distorted thoughts, poor self-esteem, stress about not finding employment, avoidance behaviors, high expectations and suicidal thoughts could be barriers to treatment. Functional Impact: Patient currently at a 32-week intrauterine with a due date of September 22, 2020. This was unplanned and has caused stress for the patient as she really wanted to focus on her career at this time. 3 weeks ago, the patient did extensive research on how to commit suicide and still save the baby and still get insurance money. She has had a depressed mood since about December 2019 which has worsened. She endorses feeling down and somewhat irritable. She endorses feeling hopeless, worthless and guilty for not contributing to them family money. She is isolating herself somewhat and has anhedonia. She used to enjoy crocheting and reading but is unable to enjoy this now. Her appetite is a little decreased but her weight is okay for her . - Objectives Objective #1 Stated Objective: Client will learn and utilize 2-3 healthy coping strategies to manage depressive symptoms. Interventions: Therapist will utilize CBT techniques to assist client with understanding the connection between thoughts, feelings and behaviors. Education will be provided on behavioral activation. Therapist will assist client in learning internal coping strategies to manage depressive symptoms, along with helping client identify triggers. Discharge Criteria: Client will have achieved this goal when can verbalize and practiced at least 2 healthy coping strategies that successfully manage depressive symptoms. Target Date: 09/06/20 Review Date: 08/23/20 Objective #2 Stated Objective: Pt will decrease depressive symptoms AEB pt?s score on the DSM 5 cross-cutting measure and improve pt?s daily functioning. Interventions: Through groups and individual therapy, pt will be provided with education on cognitive distortions, mistaken beliefs, and identifying and combating negative self-talk. Therapist will assist pt with getting back into the activities once enjoyed as well as increasing healthy coping strategies. Discharge Criteria: Pt will have met this goal when pt?s score on the DSM 5 cross cutting measure for depression has been decreased and per pt?s report daily functioning has improved. Target Date: 09/06/20 Review Date: 08/23/20 Problem/Goal #2 - Problem/Goal #2 Stated Goal:: Stabilize anxiety level while increasing ability to function and decreasing ruminative thoughts on a daily basis through Intensive Outpatient Program. Description of Barriers: Pt's distorted thoughts, poor self-esteem, stress about not finding employment, avoidance behaviors, high expectations and suicidal thoughts could be barriers to treatment. Functional Impact: Patient currently at a 32-week intrauterine with a due date of September 22, 2020. This was unplanned and has caused stress for the patient as she really wanted to focus on her career at this time. 3 weeks ago, the patient did extensive research on how to commit suicide and still save the baby and still get insurance money. She has had a depressed mood since about December 2019 which has worsened. She endorses feeling down and somewhat irritable. She endorses feeling hopeless, worthless and guilty for not contributing to them family money. She is isolating herself somewhat and has anhedonia. She used to enjoy crocheting and reading but is unable to enjoy this now. Her appetite is a little decreased but her weight is okay for her . - Objectives Objective #1 Stated Objective: Client will learn and implement 2-3 calming skills to reduce overall anxiety and manage anxiety symptoms. Interventions: Therapist will teach client calming/relaxation skills and assign client homework which practices relaxation skills daily.? Discharge Criteria: Client will have achieved this goal when can verbalize at least 2 calming skills and successfully implement those skills.? Target Date: 09/06/20 Review Date: 08/23/20 Objective #2 Stated Objective: Pt will decrease anxious symptoms AEB pt?s score on the DSM 5 cross-cutting measure improve pt?s daily functioning. Interventions: Through groups and individual therapy, pt will be provided education about anxiety?s impact on body and common physiological reaction to anxiety. Therapist will teach pt appropriate breathing techniques and build healthy coping skills to manage daily anxieties. Discharge Criteria: Pt will have met this goal when pt?s score on the DSM 5 cross cutting measure for anxiety has been decreased and per pt?s report daily functioning has improved. Target Date: 09/06/20 Review Date: 08/23/20
== END 2020-07-26 23:59 ==
LOC: BHIOP 08:30
PROVIDERS: Referring Provider Psychiatry & Neurology Psychiatry; Visit Provider Psychiatry & Neurology Psychiatry
DX: F33.2 Major depressive disorder, recurrent severe without psychotic features (principal); F41.9 Anxiety disorder, unspecified
CPT/HCPCS: H2020

== ENCOUNTER 2020-07-28 09:00 | Outpatient (RCR) | payer MEDICAID, SELFPAY ==
--- NOTE | 2020-07-28 10:00 | BH.NA_ITS ---
Physical Data - Vital Signs Pulse Rate: 116 - pt states pulse is usually elevated Blood Pressure: 128/79 - Height/Weight Height: 1.65 m Weight:: 70.307 kg - pt is 31 weeks Weight in Pounds: 155.0 lbs Current Medication Compliance - Medication Compliance Do you take your medication as prescribed?: Yes Nutritional History - Appetite Nutritional Instructions:: If client shows signs of a swallowing problem, weight change of 10 pounds or more in the last month, or is on a diabetic diet, the physician will review and request a dietitian consult, as appropriate. All unintentional weight loss will be referred to the physician for decision on need for dietitian consult. Describe your appetite:: Poor Additional nutritional information:: Client states her appetite is drastically decreased, partially because of acid reflux in . Functional Assessment - Sleep Pattern Describe any problems with sleeping: Client reports decreased sleep. Client states her gives her ample time to rest, but states her quality of sleep is low. - Activities Motor Activity:: Functional Sensory/Communication Assess - Communication Problems Do you have difficulty understanding what people are saying?: No Learning Assessment - Education What is your level of education?: Master Degree Medical Problems/History - Respiratory Conditions Comments:: asthma as a child- has not had treatment/issues as adult - Hematologic Conditions Hematologic: Other (See comments) Comments:: anemia with - on iron - Musculoskeletal Conditions Musculoskeletal: Other (See comments) Comments:: scolosis - Female Reproductive Number of pregnancies:: 3 - currently Number of children:: 2 Surgical History - Surgical History Have you had any surgeries? If so, list type and date:: Yes - tonsilectomy, left arm surgery as child Substance Abuse - Substance Abuse Please describe substance abuse in the last 30 days:: Client denies current alcohol use with . Client admits that in her early 20's she found herself drinking heavily on weekends for a period of time. Client states when she does drink alcohol now (prior to ), she feels it is 1-2 drinks to help even out my emotions. Client denies tobacco and substance use. Client states she drinks one cup of coffee per day while , stating prior to she drank coffee/energy drinks. Mental Status Summary - Mental Status Significant Findings/Observations on Appearance and Mood:: Client is alert and oriented x 4. Client is casually groomed with good hygiene. Client is wearing a mask due to COVID19 pandemic. Client is cooperative and makes good eye contact. Client's voice has normal rate and volume. Client makes logical associations and has normal processing. Client denies delusions/hallucinations. Client's affect is appropriate. Client denies SI at this time. Suicide Assessment - Suicidal Ideation Are you currently or have you been suicidal in the past?: Yes - fleeting suicidal thoughts, denies on this date Suicidal Intentional Rating Scale (SIRS): Suicidal thoughts (past) Physician Notification: If Active suicidal thoughts/Will not contract for safety is checked, contact physician and document in the Physician Notification section below. Past Psychiatric History - MH Treatment Hx Past Psychiatric Medications:: None. Client does admit using Adderall recreationally after her son was born several years ago, and states she remember percocet elevating her moods when she was prescribed it after having her son. Age of first mental health symptoms: Client reports some anxiety with her previous , but states she has never had mental health symptoms this intense until now. Describe (age, circumstance, etc) any past hospitalizations: None. Current providers for mental health treatment (counselor, psychiatrist, disability case manager, etc.): psychologist at [facility] Fall Risk Assessment - Age Age: Less than 60 - Mental Status Mental Status: Willing & able to ask for assistance when needed - Physical Status Physical Status: No problems - Impairments Impairments: None - Elimination Elimination: Continent AND independent - Gait or Balance Gait or Balance: Walks independently - Hx of Falls History of falls in the past 6 months: No known history - Medications/Substances Medications/substances used within the past 24 hours or ordered to administer: None of the medications/substances list above - Total Score Total Points:: 0 RN Summary of Impressions - Impressions Recommendations: Include psychiatric and medical issues, treatment planning recommendations, and discharge planning needs. Impressions: Psychiatric Issues: Major depressive disorder, recurrent, severe without psychosis; anxiety disorder, NOS - Level of Care How do the client's current symptoms and functional deficits support need for this level of care?: Client was referred to IOP by psychologist after she started having SI during her . Client states her symptoms have been worsening over the last few months. 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 Client states COVID this year, her losing his job due to COVID and financial issues after unemployment compensation was decreased have all added to her stressors. Client states she has been having some SI and has googled ways she could kill herself but not harm the baby. Client states she does not want to harm her baby, but she feels worthless in her family due to not having a job and contributing financially. Client reports decreased appetite, decreased motivation, anhedonia, and worthlessness. Client states she has had some SI over the last few months, and feels like she is more easily triggered to that dark place with those dark thoughts. Client denies SI at this time. IOP will promote gains and prevent further decompensation while providing social support and skills training.
[2020-07-28 10:11] VITALS: BP 128/79; PULSE 116
--- NOTE | 2020-07-28 11:11 | BH.SGPN.GN ---
Behaviors/Verbalizations/Mental Status: []Client alert and oriented, neatly dressed and groomed. Eye contact good. Motor activity appropriate. Speech within normal limits. Affect constricted, mood dysthymic. Thoughts linear, logical, no signs of hallucinations or delusions. Client Response/Progress/Benefit: []Client engaged participant as evidenced by client providing input throughout discussion and listening attentively to peers. Client participated in the discussion of how each resiliency component can help increase personal resiliency. Client identified current resiliency traits client currently possesses and how these can continue to help client in treatment. Client identified personal resilience traits to include: making connections, self-awareness, and taking decisive action. Client initially struggled to identify any resilience traits and shared ?I?m always advocating for others and never myself.? Client appeared to benefit from connecting with peers and challenging perspective. Client?s first week in IOP. Will continue IOP tx to prevent decompensation, improve daily functioning, and reduce negative thoughts. Narrative Note: []
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
--- NOTE | 2020-07-28 13:41 | BH.PSY.EVA_ITS ---
Initial Treatment Plan - Patient Information Visit Information: ADMISSION DATE: EXPECTED LOS: 4-6 weeks - Problems/Symptoms Problem #1:: Depression Symptom:: Sadness, hopelessness, worthlessness, guilt, suicidal ideation, anhed onia Problem #2:: Anxiety Symptom:: Rumination
--- NOTE | 2020-07-30 09:05 | BH.SGPN.GN ---
Behaviors/Verbalizations/Mental Status: [] Eye contact is good. Motor activity is appropriate. Appearance is neat. Speech is Appropriate. Mood is anxious. Affect is congruent. Thoughts are linear and logical. No evidence of psychosis. Reviewed daily check in sheet and reports 3/5 for suicidal thoughts and 0/5 for intent. Therapist notified. Client Response/Progress/Benefit: [] Pt was an active participant in group discussions. Attentive. Provided appropriate feedback. Check-in was positive. Feels more hopeful recently because I'm actually doing something about my mental health. Met with ALEKSANDAR who moved her anti-depressant to the evening which she feels was more beneficial. Pt reports ALEKSANDAR was proud of her reaching out for help. Feel less irritable and more patience with herself and her support. Gave some examples of this. Progress noted per pt report. Will continue in IOP to maintain safety, stabilize mood, and improve functioning. Narrative Note: []
--- NOTE | 2020-07-30 10:15 | BH.SGPN.GN ---
Behaviors/Verbalizations/Mental Status: []Client alert and oriented, casually dressed and groomed. Eye contact fair. Motor activity appropriate. Speech within normal limits. Affect congruent, mood euthymic. Thoughts linear, logical, no signs of hallucinations or delusions. Client Response/Progress/Benefit: []Pt engaged participant AEB pt providing input at times during discussion, completing worksheet and appearing to actively listen to peers. Appeared to connect with others during discussion about the positives of anxiety. Pt stated if she uses anxiety as a way to motivate herself she is able to accomplish her goals. Pt reported if she lets fear control her then she won't be able to progress in life and would make her line of work very challenging. Pt stated her physical symptoms of anxiety include: fidgety, sweating palms, increased urination, upset stomach, tunnel-vision focus, and restless. Pt seemed to benefit from increased awareness of physical signs of anxiety. Pt to continue IOP to increase healthy coping, improve daily functioning and prevent decompensation. Narrative Note: []
--- NOTE | 2020-07-30 11:15 | BH.SGPN.GN ---
Behaviors/Verbalizations/Mental Status: []Client alert and oriented, casually dressed and groomed. Eye contact good. Motor activity appropriate. Speech within normal limits. Affect constricted, mood dysthymic. Thoughts linear, logical, no signs of hallucinations or delusions. Client Response/Progress/Benefit: []Client was an active participant in group discussion and provided insight on group topic. Attentive during psychoeducation on mindfulness coping skills and their impact on her mental health wellness. Practiced deep breathing, meditation, and PMR with group. Client was able to identify self-soothing and mind-based coping skills client wants to incorporate into current coping skill practice. The skills Client chose to practice were deep breathing and meditation. Appeared to benefit from practicing in the moment coping skills. First week of IOP tx, limited progress but appears to be connecting well with peers. Will continue IOP tx to prevent decompensation and reduce negative thinking. Narrative Note: []
--- NOTE | 2020-08-02 09:00 | BH.SGPN.GN ---
Behaviors/Verbalizations/Mental Status: []Client alert and oriented, casually dressed. Eye contact fair. Motor activity appropriate. Speech within normal limits. Affect congruent, mood anxious. Thoughts linear, logical, no signs of hallucinations or delusions. Client scored self at baseline for suicidal risk and ideation. Client Response/Progress/Benefit: []Client responded well to session, participated and engaged throughout discussion. Client reported feeling ?anxious? as she shared her stressors. Stressors included feeling ?failed and internalizing ?s stress from college assignments.? Client reported she received a job interview and has anxiety as she has not heard back from the agency yet and stated her ?worth is based off of work? which has resulted in some ?resentment towards the baby.? Client reported minimizing feelings is common for client, but discussed her communication has increased with her therapists, doctors, and supports. Reported completing self-care over the weekend by signing, dancing, spending quality time with her family, and decorating for [place].? Benefited from group by offering positive feedback and insight to new group members. Client will continue IOP to prevent decompensation, reduce negative thinking, and learn healthy coping skills. Narrative Note: []
--- NOTE | 2020-08-02 10:12 | BH.SGPN.GN ---
Behaviors/Verbalizations/Mental Status: []Client alert and oriented, neatly dressed and groomed. Eye contact good. Motor activity appropriate. Speech within normal limits. Affect congruent. mood dysthymic and agitated. Thoughts linear, logical, no signs of hallucinations or delusions. Client Response/Progress/Benefit: []Client was an active participant as evidenced by providing input throughout discussion. Client connected with the discussion about how distorted thought patterns can reinforce mental health symptoms and impact self-worth. Client stated she usual gets one negative self-worth thought that ?spirals? client into thinking her family would be better off without client. Client noted that she connects with minimizing, personalization, and should/musts. Client also gave examples of overgeneralizing and disqualifying the positives. Client shared that distortions often lead to self-criticism and can keep people stuck. Appeared to benefit from increasing awareness of cognitive distortions and how they can impact emotions and behaviors. Will continue IOP tx to prevent decompensation, challenge distorted thought patterns, and increase self-care. Narrative Note: []
--- NOTE | 2020-08-02 11:15 | BH.SGPN.GN ---
Behaviors/Verbalizations/Mental Status: []Client alert and oriented, casual dress, hygiene tended to. Eye contact good. Motor activity appropriate. Speech within normal limits. Affect constricted, mood anxious. Thoughts linear, logical, no signs of hallucinations or delusions. Client Response/Progress/Benefit: []Client was an active participant AEB client providing input throughout session, listening attentively to peers and completing worksheet. Client attentive during psychoeducation and additional discussion on cognitive distortions. Client engaged in discussion about how to reframe distorted thoughts into more realistic, rational statements. Client shared her distorted thought is I should've remembered that thing for my . Client able to reframe distorted thought to He is responsible for himself and I can't be responsible for all his tasks. Client initially struggled with being able to believe the reframed thought. With further discussion and assistance from therapist client able to connect how she can believe reframed thoughts. Client seemed to benefit from practicing identifying and reframing distorted thoughts. First day in IOP. To continue IOP to increase healthy coping skills, challenge negative thought patterns and prevent decompensation. Narrative Note: []
--- NOTE | 2020-08-03 09:10 | BH.SGPN.GN ---
Behaviors/Verbalizations/Mental Status: [] Eye contact is good. Motor activity is appropriate. Appearance is casual. Speech is Appropriate. Mood is anxious. Affect is congruent. Thoughts are linear and logical. No evidence of psychosis. Reviewed daily check in sheet and no reports of suicidal ideations or intent. Client Response/Progress/Benefit: [] Pt was an active participant in group discussion. Attentive. Provided appropriate feedback to peers. Shared with the group that she received a rejection letter after her recent job interview and she has been wondering is she is processing this news appropriately. Shared that in the past she would not process negative events and push them down until one day she exploded. Immediately after getting the bad news she began to ruminate on the reasons she did not get the job. During this she learned of another job which she thoughts would be better for her and never processed her grief. Group provided feedback on their experiences processing bad news and grief which was helpful. Overall pt reports that she is making progress and feels that the medications have been effective. Progress noted per pt report. Will continue in IOP to improve functioning, maintain safety, and stabilize mood. Narrative Note: []
--- NOTE | 2020-08-03 10:20 | BH.SGPN.GN ---
Behaviors/Verbalizations/Mental Status: []Client alert and oriented, casually dressed and groomed. Eye contact good. Motor activity appropriate. Speech within normal limits. Affect constricted, mood anxious and dysthymic. Thoughts linear, logical, no signs of hallucinations or delusions Client Response/Progress/Benefit: []Client was an engaged participant AEB client providing input throughout discussion and listening attentively to others. Client connected with the topic of obstacles and solutions and worked with group to identify common obstacles that keep people stuck. Client shared current reality as ?pouring from an empty cup? and ?feeling small? because of how much client?s family needs from client. Client stated she recognizes that her expectations for herself are unrealistic, but client has a hard time asking for help. Client's realistic, desired reality is to feel like client is part of a ?unit? and to be able to delegate responsibilities at home without feeling guilty. Group discussed common barriers that keep people stuck to include negative thinking, lack of self-forgiveness, and fear of the unknown. Benefited from group as client was able to identify current and desired mental health state and increase awareness of how barriers can impact progress. Client to continue IOP tx to prevent decompensation, combat negative thinking, and improve self-worth. Narrative Note: []
--- NOTE | 2020-08-03 11:20 | BH.SGPN.GN ---
Behaviors/Verbalizations/Mental Status: []Client alert and oriented, casually dressed and groomed. Eye contact good. Motor activity appropriate. Speech within normal limits. Affect constricted, mood anxious and dysthymic. Thoughts linear, logical, no signs of hallucinations or delusions. Client Response/Progress/Benefit: []Client was an active participant in group discussion and activity. Engaged during activity and provided ideas on how to cope with internal barriers that keep clients stuck from moving towards goals. Barriers identified by client included: lack of communicating needs, pride and shame, and poor boundaries. Strategies identified for overcoming these barriers included: writing out needs/ boundaries, practicing positive self-talk, and thought challenging. Client reported she wants to work on overcoming her barrier of lack of communication of needs by writing out her needs prior to sharing them so client does not get off topic. Benefited from group by identifying obstacles and solutions to desired reality. Client has been showing progress with asking for help, but she continues to struggle with negative thinking that reinforces depression and low self-worth. Will continue IOP tx to prevent decompensation, reduce negative thinking, and increase healthy boundaries. Narrative Note: []
--- NOTE | 2020-08-06 11:20 | BH.SGPN.GN ---
Behaviors/Verbalizations/Mental Status: []Client alert and oriented, neatly dressed and groomed. Eye contact good. Motor activity appropriate. Speech within normal limits. Affect congruent, mood dysthymic. Thoughts linear, logical, no signs of hallucinations or delusions. Client Response/Progress/Benefit: []Client engaged in session AEB listening attentively to others, providing input, and taking notes throughout. Client remained attentive during discussion about the 4 A's of managing stress and discussed connecting with the various benefits of each. Client reported she would like to work on the strategy of avoiding taking on too many responsibilities and setting boundaries with her family. Client has shared it is difficult for her to delegate tasks to her and children. As a result, client feels emotionally exhausted which reinforces negative self-talk and poor self-worth. Client seemed to benefit from increased awareness of the impact of stress on mental health and increasing repertoire of stress management strategies. Progress noted in client?s increased self-awareness of the benefits of boundary setting. Will continue IOP tx to reduce depressive symptoms and cognitive distortions that reinforce low self-worth. Narrative Note: []
--- NOTE | 2020-08-06 14:57 | BH.MDN ---
Multi-Disciplinary Note - Note 45-min Individual Time Started:: 09:20 Date: 08/06/20 Time Stopped:: 10:10
--- NOTE | 2020-08-09 09:10 | BH.SGPN.GN ---
Behaviors/Verbalizations/Mental Status: [] Eye contact is good. Motor activity is appropriate. Appearance is casual. Speech is Appropriate. Mood is depressed. Affect is flat. Thoughts are linear and logical. No evidence of psychosis. Reviewed daily check in sheet and pt reports 1/5 for suicidal thoughts and 0/5 for intent. Client Response/Progress/Benefit: [] Pt was an active participant in group discussion. Daily symptoms tracker notes 3/5 for anger/depression. Pt reports mental health win and starring to feel connected to her baby which has been a struggle during this . Shared with the group some internal negative thoughts regarding finding a job and how this impacts her mood and functioning. Sunday night was very stressful and she reports that she had an influx of thoughts that she was not a good mother.. a failure ... would be better off not around. Insight that these thoughts are not true however at that moment (sleepy, nauseous, and stressed) she was not able to challenge those thoughts. Increased confidence in her skills while she is more alert and less overwhelmed. Group provided feedback and suggestions. Pt benefited from group support, encouragement, and feedback. Will continue in IOP to maintain safety, increase health coping, and to improve functioning. Narrative Note: []
--- NOTE | 2020-08-09 10:20 | BH.SGPN.GN ---
Behaviors/Verbalizations/Mental Status: []Client alert and oriented, casually dressed and groomed. Eye contact fair. Motor activity appropriate. Speech within normal limits. Affect constricted, mood dysthymic. Thoughts linear, logical, no signs of hallucinations or delusions. Client Response/Progress/Benefit: []Client engaged participant AEB client providing input at times during group session and listening attentively to peers. Group discussed healthy versus unhealthy coping skills and what contributes to people using unhealthy skills. The group stated unhealthy coping skills tend to be easy and habitual, temporary relief, and learned behaviors. Client reported feeling overwhelmed can lead to using unhealthy coping skills. Client stated she has uses avoidance through taking on other people?s problems. Has insight this skill does not help in the long-term. Client participated in the group activity and connected that a healthy foundation of coping skills is composed of healthy internal and external coping skills. Client seemed to benefit from increased awareness of the importance of increasing healthy coping skills and consequences of utilizing unhealthy coping skills. Client will continue IOP tx to combat cognitive distortions, learn healthy boundary setting skills, and improve mood stability. Narrative Note: []
--- NOTE | 2020-08-09 11:20 | BH.SGPN.GN ---
Behaviors/Verbalizations/Mental Status: []Client alert and oriented, casual dress, hygiene tended to. Eye contact fair. Motor activity appropriate. Speech within normal limits. Affect congruent, mood euthymic. Thoughts linear, logical, no signs of hallucinations or delusions. Client Response/Progress/Benefit: []Client responded well to session, actively listening and providing examples. Group discussed the different categories of coping skills which included distraction, emotional release, grounding, self-love, and thought challenging. Client participated in creating a coping skills ?menu? from the five categories of coping skills. Client's coping skill menu included: video games, meditation, dancing, talking to others, and positive affirmations. Progress noted in client's increased awareness of the need to engage in self-love to stabilize mood and increase confidence. Appeared to benefit from increasing repertoire of healthy coping skills. Will continue tx to increase use of healthy coping skills, challenge negative thought patterns and prevent decompensation. Narrative Note: []
--- NOTE | 2020-08-11 09:05 | BH.SGPN.GN ---
Behaviors/Verbalizations/Mental Status: []Client alert and oriented, well dressed and groomed. Eye contact good. Motor activity appropriate. Speech within normal limits. Affect congruent, mood euthymic. Thoughts linear, logical, no signs of hallucinations or delusions. Reviewed client's symptom tracker, no thoughts or risk of suicide as of 08/11/20. Client Response/Progress/Benefit: []Client responded well to session, providing encouragement and positive feedback. Client reports feeling anxious in a positive way this morning as client has a job interview this afternoon. Client shared she feels confident and has been using healthy distractions and positive self-talk. Client reports I kind of live for this kind of anxiety...I treat it like a performance. Client shared overall her mood has improved and client has been doing some reflecting on the positives. Client shared her communication at home has improved as well and client's plans to get therapy as well. Client appeared to benefit from reflecting on her improved mood and increased self-advocacy. Will continue IOP tx to promote mood stability and further combat cognitive distortions. Narrative Note: []
--- NOTE | 2020-08-11 10:15 | BH.SGPN.GN ---
Behaviors/Verbalizations/Mental Status: [] Eye contact is good. Motor activity is appropriate. Appearance is neat. Speech is Appropriate. Mood is euthymic. Affect is full. Thoughts are linear and logical. No evidence of psychosis. Client Response/Progress/Benefit: [] Pt was an active participant in group discussions and activity. Shared her thoughts in the quote of the day. Worked with group members to identify the benefits of setting goals which include; sense of accomplishment, builds self-esteem, increases motivation, gives purpose, keeps us on track, and provides accountability. Worked with peers to identify the barriers to setting goals or things that keep us from accomplishing goals which include; low self-esteem, often set unrealistic goals/expectations, toxic people, lack of resources, and negative thoughts patterns. Pt states that for her breaking up goals into smaller pieces is most beneficial to her. Attentive during psycho-education on developing SMART (Specific, Measurable, Achievable, Realistic, Timely) goals. Benefited from education on the benefits of goal-setting and increased insight into skills to set realistic and attainable goals. Narrative Note: []
--- NOTE | 2020-08-11 11:15 | BH.SGPN.GN ---
Behaviors/Verbalizations/Mental Status: []Eye contact is good. Motor activity is appropriate. Appearance is casual. Speech is Appropriate. Mood is anxious. Affect is congruent. Thoughts are linear and logical. No evidence of psychosis. Client Response/Progress/Benefit: []Pt was an active participant in group discussions and activities. Along with group members was able to identify barriers during group beach ball activity and strategies they utilized to overcome these barriers (communicating, encouraging others). Able to identify a SMART goal for the next week which was meditate at least 5 minutes for 4 out of 7 days. Discussed how she often puts others needs ahead of her own which results in her not engaging in skills that can be beneficial to her. She was able to identify barriers and obstacles to this goals and strategies to overcome these barriers. Benefited from group by being able to utilize SMART educate to create a goal. Narrative Note: []
--- NOTE | 2020-08-11 12:12 | PCM.BH.PN ---
Progress Note Progress Note: History of Present Illness/Interim History: [] The patient is a 35-year-old female who is currently about 34 weeks estimated gestational age of her intrauterine . The patient is seen in follow-up at the [facility] behavioral health program. I last saw the patient about 2 weeks ago and at that time she was placed on Zoloft for depression and anxiety. The patient states that she feels that she is much better on the Zoloft. She had some nausea when taking in the morning so her OB doctor had her take it in the evening and the nausea has resolved. She is getting about 7 and half hours of sleep a night now and is not napping as much during the day. She does have fatigue during the day. She often has trouble sleeping in the third trimester of and she is taking Pepcid for GERD which is related. She feels that the IOP program is really benefiting her and she is learning skills to help her cope with her issues. In particular she feels that it is much easier for her to control her negative rumination since starting the program. She feels her mood is approaching euthymia. She feels the Zoloft helps her be a little less emotional and she is able to get more done at home. 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 She denies suicidal ideation, thoughts of , or any other symptoms. She still has some some anxiety. Current Psychiatric Medications: [] Zoloft 25 mg p.o. daily (x2 weeks) Mental Status Examination: [] Patient is a 35-year-old female who appears normal for stated age and is casually dressed and groomed with good hygiene. She is seen wearing a mask due to the pandemic. She has no psychomotor agitation or retardation. Eye contact is good and speech is normal rate and rhythm and fluent with no pressure. Mood is euthymic. Affect is full and normal. Thought process is goal-directed and organized. Thought content: No evidence of suicidal or homicidal ideation. No evidence of hallucinations or delusions. Diagnoses: [] [place] I: [] Major depressive disorder, recurrent, severe without psychosis; anxiety disorder, NOS [place] II: [] Deferred [place] III: [] 34-week intrauterine , scoliosis [place] IV:[]] Primary support, financial and job issues Plan: [] Patient will continue the IOP program at [facility] as the structure, support, education, individual and group therapy will hopefully prevent worsening of the patient's symptoms. She felt safe during the interview and if it anytime she does not feel safe she will let us know or go to the emergency room. The risk, options, possible complications and side effects of the medication were discussed with the patient again and she understands and accepts these. No medication dosage changes were made and the patient will continue the 25 mg dose of Zoloft. The patient will be watched carefully for signs of hypomania as her recovery has been somewhat rapid. I will see the patient in follow-up in 1 to 2 weeks.
--- NOTE | 2020-08-13 10:56 | BH.SGPN.GN ---
Behaviors/Verbalizations/Mental Status: []Client alert and oriented, casual dress, hygiene appropriate. Eye contact good. Motor activity appropriate. Speech within normal limits. Affect congruent, mood anxious. Thoughts linear, logical, no signs of hallucinations or delusions. Client Response/Progress/Benefit: []Client responded well to session, connecting with peers and receptive to supportive statements. Client engaged in the boundary self-assessment activity and attentive during psychoeducation on the different boundary styles. Client reported she is porous with people she does not know well, but has healthy boundaries with her family. Client shared she is more rigid with her emotional boundaries and often minimizes her feelings and stressors. Client reported being emotionally rigid has kept client from forming relationships. Client participated in brainstorming strategies to improve boundary setting and reports wanting to work on asking for feedback from healthy supports. Progress noted in client?s report of increased self-awareness and improving mood. Client to continue IOP tx to further decrease intensity of symptoms and to improve self-esteem. Narrative Note: []
--- NOTE | 2020-08-13 14:56 | BH.MDN ---
Multi-Disciplinary Note - Note 30-min Individual Time Started:: 10:28 Date: 08/13/20 Time Stopped:: 11:00
--- NOTE | 2020-08-16 09:05 | BH.SGPN.GN ---
Behaviors/Verbalizations/Mental Status: [] Eye contact is good. Motor activity is appropriate. Appearance is casual. Speech is Appropriate. Mood is euthymic. Affect is full. Thoughts are linear and logical. No evidence of psychosis. Reviewed daily check in sheet and pt reports 2/5 for suicidal thoughts and 0/5 for intent which is baseline for patient. Client Response/Progress/Benefit: [] Pt was an active participant in group discussion. Provided appropriate feedback. Emotion for today is trepidatious. Shared that she continues to have anxiety over whether she will get the job she recently interviewed for, however understands this is healthy anxiety.States I'm still moving forward. Insight and awareness that she was basing her self-esteem on external achievements and is begining to look more internal for her self-esteem. I know that I'm worth more than a job or a grade. Reports that her mood continues to improve and she is noticing this in daily activities such as parenting and going to the store. Feeling less overwhelmed and depressed. Progress noted per pt report. Will continue in IOP to maintain safety, prevent decompensation, and increase healthy coping. Narrative Note: []
--- NOTE | 2020-08-16 10:10 | BH.SGPN.GN ---
Behaviors/Verbalizations/Mental Status: []]Eye contact is good. Motor activity is appropriate. Appearance is casual. Speech is Appropriate. Mood is anxious. Affect is congruent. Thoughts are linear and logical. No evidence of psychosis. Client Response/Progress/Benefit: [] Pt an engaged participant throughout session AEB pt providing input at times to discussion, willing to complete worksheet and appearing to listen attentively to others. Pt reported she recognizes her anger response of yelling or saying mean things to her family is hurtful to them but also to herself. Pt stated after her anger outburst she will ruminate and beat self up. Shared her emotions underlying anger include: physical discomfort, low self-worth, guilt, disappointment, and resentment. Pt identified the following ways she expresses anger: yelling, hostility, saying mean things and throwing stuff. Pt seemed to benefit from increased awareness of how unmanaged anger can impact self and others. Progress noted with pt's continued report of improved mood. Pt to continue IOP to maintain progress, continue use of healthy coping and prevent decompensation. Narrative Note: []
--- NOTE | 2020-08-16 11:12 | BH.SGPN.GN ---
Behaviors/Verbalizations/Mental Status: []Client alert and oriented, casually dressed and groomed. Eye contact good. Motor activity appropriate. Speech within normal limits. Affect congruent. mood anxious. Thoughts linear, logical, no signs of hallucinations or delusions. Client Response/Progress/Benefit: []Pt was engaged throughout AEB contributing to group discussion and self-reflection. Pt contributed as the group provided examples of physical warning signs for anger and identified personal warning signs. These included: glaring, tension, ears buzzing, crying, and back pain. Pt contributed as group brainstormed healthy coping skills for better managing anger which included: music, walking/exercise, opposite action, identifying distortions, DDD, and meditation. Pt appeared to benefit from identifying different techniques to manage anger as well as gaining awareness of potential consequences of unmanaged anger. Pt selected going outside and DDD as coping skills pt would like to try to regulate anger. Progress noted as client reports improved communication skills at home and has been challenging distortions. Client will continue IOP tx to promote gains and to reinforce healthy coping skills. Narrative Note: []
--- NOTE | 2020-08-17 09:05 | BH.SGPN.GN ---
Behaviors/Verbalizations/Mental Status: [] Eye contact is good. Motor activity is appropriate. Appearance is casual. Speech is Appropriate. Mood is anxious. Affect is congruent. Thoughts are linear and logical. No evidence of psychosis. Reviewed daily check in sheet and no reports of suicidal thoughts. Client Response/Progress/Benefit: [] Pt was an active participant in group discussion. Emotion for today is anxious. Shared with the group that she had a difficulty night last night as she had trouble sleeping due to her daughter. Poor sleep, irritability, and other factors caused pt to experiences negative thoughts regarding her self-worth. Had difficulty challenging those thoughts. Ruminating on her abilities as a mother and her inability to obtain employment. Pt reports being more motivated and optimistic today. Has goal to complete a task that she has been avoiding today. Benefited from group support, encouragement, and feedback. Some regression last evening however insight that progress is not linear. Will continue in IOP to maintain safety, increase healthy coping, and improve functioning. Narrative Note: []
--- NOTE | 2020-08-17 10:10 | BH.SGPN.GN ---
Behaviors/Verbalizations/Mental Status: []Client alert and oriented, casually dressed and groomed. Eye contact good. Motor activity appropriate. Speech within normal limits. Affect congruent, mood agitated. Thoughts linear, logical, no signs of hallucinations or delusions. Client Response/Progress/Benefit: []Client receptive of session, attentive in discussion and activity. Client discussed the quote and connected with personal and interpersonal consequences of not managing emotions. Client helped group identify barriers that impact one?s ability to communicate when emotions are high. These barriers included; negative thoughts, lashing out, and shutting down. Client shared she often displaces her emotions on family which causes more conflict. Group discussed why it is important to be able to communicate effectively when emotions are high. Client participated in the activity and did well to manage emotions throughout. Client shared it was hard for client to not take control during the activity, but she managed. Client appeared to benefit from increasing awareness of how emotions can impact communication and practicing in the moment coping skills. Client demonstrating progress in application of coping skills and reduced depression. Will continue IOP tx to promote gains, improve self-care, and combat distortions. Narrative Note: []
--- NOTE | 2020-08-19 10:20 | BH.SGPN.GN ---
Behaviors/Verbalizations/Mental Status: []Client alert and oriented, neatly dressed and groomed. Eye contact good. Motor activity appropriate. Speech within normal limits. Affect constricted, mood irritable. Thoughts linear, logical, no signs of hallucinations or delusions. Client Response/Progress/Benefit: []Client active participant as shown by active listening and contributing to small group discussion. Client contributed to the discussion of self-care and the consequences of not practicing self-care. Client agreed with peers that it is important to practice self-care, but they all struggle with through. Client helped the group discuss benefits of self-care which included; improved mood, better mental health, and better relationships. Client participated in the discussion of the common myths about self-care. Client participated in the discussion on debunking of these myths. Client?s group challenged the myths: self-care should be fun, self-care is selfish, and self-care just personal hygiene. Client shared that she struggles most with feeling that self-care is selfish which keeps client from engaging in self-care. Client seemed to benefit from increased awareness of the importance of self-care and challenging common myths that prevent practicing self-care. Will continue IOP tx to reduce negative thinking that reinforces depression and anxiety as well as to improve daily functioning. Narrative Note: []
--- NOTE | 2020-08-19 11:20 | BH.SGPN.GN ---
Behaviors/Verbalizations/Mental Status: []Client alert and oriented, casually dressed, hygiene appeared to be tended to. Eye contact fair. Motor activity appropriate. Speech within normal limits. Affect constricted, mood anxious. Thoughts linear, logical, no signs of hallucinations or delusions. Client Response/Progress/Benefit: []Client active participant AEB client providing input during discussions and listened attentively to peers. Participated in group discussion on the various areas of self-care, benefits, and types of self-care activities for each area. Client completed worksheet in which she identified current self-care practices and what self-care activities she wants to start using. Client reported she will focus on improving her psychological self-care. Client stated she will work on self-care by engaging in meditation to increase being in the moment. Progress noted as client has been able to utilize opposite action which has helped her get tasks done she has been avoiding. Will continue IOP tx to further promote the use of healthy coping skills, improve self-esteem and prevent decompensation. Narrative Note: []
--- NOTE | 2020-08-19 14:38 | BH.MDN ---
Multi-Disciplinary Note - Note 30-min Individual Time Started:: 09:29 Date: 08/19/20 Purpose of session/treatment goals addressed:: Session focused on goal 2 from master treatment plan. Eye Contact:: Good Motor Activity:: Appropriate Appearance:: Casual Speech:: Appropriate Mood:: Euthymic, Anxious Affect:: Congruent Thoughts:: Linear, Logical, No evidence of hallucinations/delusions noted Staff Interventions:: Therapist used open ended questions to elicit pt's current symptoms and stressors. Therapist reviewed homework, discussed barrier to completing homework. Therapist assisted pt with identifying how to challenge anxious thoughts about applying for jobs. Client Response:: Pt reported she did not complete her homework from last session. Pt stated she couldn't work with her on identifying patient's realistic responsibilities as a and mother. Pt reported her is also struggling with mental health problems. Pt stated her is struggling with anxiety and will be going to mental health counseling soon. Pt shared she didn't want to add more to her 's plate which is why she didn't complete the homework. Pt stated although she didn't do the homework she still feelings like her relationship with her is maturing since starting IOP. Pt reported she openly shares about what she does in IOP and it is strengthing their relationship. Pt reported she had been feeling anxious about applying for additional jobs because fears refection. Pt stated she did apply for more jobs after her helped encourage and challenge her anxious thought patterns. Pt stated she has been working on letting go of control to give her a chance to take on more rsponsibility. Pt seemed to benefit from therapist helping her reframe her anxious thought about fear of rejection when applying for jobs. Pt stated her goal for the week is to be more flexible with what she is doing which she reported will help her interact with her children more. Risks/Concerns:: denies current suicidal thoughts, plan or intention to date. future focused. Progress Toward Goals/Plan:: Progress noted with pt reporting improved mood, improved relationship and increased awareness of her distorted and anxious thoughts. Continues to struggle with low self esteem and negative thoughts. Pt to continue IOP to maintain progress, continue to challenge distorted thoughts and prevent decompensation. Time Stopped:: 10:02
--- NOTE | 2020-08-23 09:10 | BH.SGPN.GN ---
Behaviors/Verbalizations/Mental Status: [] Eye contact is good. Motor activity is appropriate. Appearance is casual. Speech is Appropriate. Mood is euthymic. Affect is full. Thoughts are linear and logical. No evidence of psychosis. Reviewed daily check in sheet and pt reports 1/5 for suicidal thoughts and 0/5 for intent. This is baseline for patient. Client Response/Progress/Benefit: [] Pt was an active participant in group discussion. Emotion for today is cautiously optimistic. Shared mental health wins over the weekend which included a lengthy and in-depth discussion with her regarding communication and mental health. She was able able to turn a negative event or episode into an opportunity for growth. Setting boundaries with support over the holidays which has helped her mental health. Identified that she was starting to spiral on 08/19/20 however utilized skills and was able to minimize thoughts of worthlessness. Focusing on self-care which was her goal. Benefited from group support, encouragement, and feedback. Progress noted per pt report. Will continue in IOP to maintain safety, increase healthy coping, and improve functioning. Narrative Note: []
--- NOTE | 2020-08-23 10:18 | BH.SGPN.GN ---
Behaviors/Verbalizations/Mental Status: []Client alert and oriented, neatly dressed and groomed. Eye contact good. Motor activity appropriate. Speech within normal limits. Affect congruent, mood euthymic. Thoughts linear, logical, no signs of hallucinations or delusions. Client Response/Progress/Benefit: []Client engaged throughout session AEB active participation. Connected with discussion on crisis and how coping with external crises by using unhealthy coping skills could result in a personal crisis. Group reflected on the importance of having awareness of personal warning signs in order to prevent reaching crisis point. Client reported her response to crisis is typically ?to be superhuman and take on everything? which results in client being burnout. Group identified potential warning signs for crisis and client completed the personal warning signs worksheet. Client identified personal crisis warning signs to include: having a short fuse, lack of motivation, and negative thinking. Client benefited by increasing awareness of what leads to crisis and personal warning signs. Progress noted in client?s more consistent report of reduced depressive symptoms. Will continue IOP tx as client can benefit from further reducing negative thoughts and improve self-care. Narrative Note: []
--- NOTE | 2020-08-23 11:20 | BH.SGPN.GN ---
Behaviors/Verbalizations/Mental Status: [] Client Response/Progress/Benefit: []Behaviors/Verbalizations/Mental Status: []Client alert and oriented, casually dressed and groomed. Eye contact good. Motor activity appropriate. Speech within normal limits. Mood euthymic. affect congruent. Thoughts linear, logical, no signs of hallucinations or delusions. Client Response/Progress/Benefit: []Client responded well to session as evidenced by client listening attentively to others and providing strategies during discussion. Client identified her warning signs for crisis and gained further awareness of earliest warning signs.Client created a crisis action plan to help client better manage warning signs for crisis. Client?s action plan for short fuse included: grounding, DDD (delay, distract, decide), go for a walk, try to identify underlying stressor, and communicate with supports. Client appeared to benefit from creating a crisis action plan and increasing self-awareness. Progress noted in client reporting decrease suicidal thoughts and application of skills outside treatment environment. Client to continue IOP tx to maintain gains, improve self-confidence, and prevent decompensation. Narrative Note: []
--- NOTE | 2020-08-25 10:15 | BH.SGPN.GN ---
Behaviors/Verbalizations/Mental Status: [] Eye contact is good. Motor activity is appropriate. Appearance is casual. Speech is Appropriate. Mood is euthymic. Affect is full. Thoughts are linear and logical. No evidence of psychosis. Client Response/Progress/Benefit: [] Pt was an active participant in group discussion and activity. Attentive during psychoeducation and discussion on famous people who have overcome set-backs and failures. Participated with peers in coming up with descriptions of failure which included; messing up, not accomplishing a goal, making the wrong choice, and giving up. Group discussed the impact of fear of failure stating that it can lead to; inaction, increased anxiety, self-fulfilling prophecy, and it can keep them from reaching goals or even trying. Pt benefited from group as evidenced by increased insight and awareness of the impact of fear of failure on mood and actions. Will continue in IOP to maintain gains. Narrative Note: []
--- NOTE | 2020-08-25 14:54 | BH.MDN ---
Multi-Disciplinary Note - Note 30-min Individual Time Started:: 09:25 Date: 08/25/20 Eye Contact:: Fair Motor Activity:: Appropriate Appearance:: Casual Speech:: Appropriate Mood:: Euthymic, Irritable Affect:: Congruent Thoughts:: Linear, Logical, No evidence of hallucinations/delusions noted Time Stopped:: 10:00
--- NOTE | 2020-08-25 14:55 | BH.TPR ---
Treatment Plan Review Date of Treatment Plan Review:: 08/25/20
--- NOTE | 2020-08-26 09:10 | BH.SGPN.GN ---
Behaviors/Verbalizations/Mental Status: [] Eye contact is good. Motor activity is appropriate. Appearance is casual. Speech is Appropriate. Mood is depressed. Affect is flat. Thoughts are linear and logical. No evidence of psychosis. Reviewed daily check in sheet and pt reports 1/5 for suicidal thoughts and 0/5 for intent. Client Response/Progress/Benefit: [] Pt was an active participant in group discussion. Daily symptom tracker notes 3/5 for depression, anxiety, and anger. Shared with the group an anger outburst that she had last night. I felt like it came out of nowhere. Tearful while talking about and processing the events. Group was very support and provided feedback. Benefited from processing this event. Group challenged views that she is regressing or failing. Pt showed insight that progress is not linear and was able to rely on information from previous IOP groups. Attempting to utilize this event as an oppurtunity to grow rather than ruminate or dwell. Will continue in IOP to prevent decompensation, stabilize mood, and increase healthy coping skills. Narrative Note: []
--- NOTE | 2020-08-26 10:16 | BH.SGPN.GN ---
Behaviors/Verbalizations/Mental Status: []Client alert and oriented, casually dressed and well groomed. Eye contact good. Motor activity appropriate. Speech within normal limits. Affect congruent, mood agitated. Thoughts linear, logical, no signs of hallucinations or delusions. Client Response/Progress/Benefit: []Client an active participant during group AEB client contributing input to discussion, able to make connections throughout. Client agreed with group that it is important to have a variety of social supports. Group identified benefits of social support as gaining different perspectives, awareness, accountability, and encouragement. Client also helped group identify barriers to using support. Client shared one of her barriers which was relying too much on one support. Client reports this causes problems with her . Appeared to benefit from gaining awareness of barriers that keep people from seeking social support as well as identifying the benefits of increasing support. Client progress noted in client?s self-report of improved ability to challenge distortions. Client continues to report issues with communication between client and her . Will continue IOP tx to promote the use of healthy coping skills, improve mood stability, and reframe distortions. Narrative Note: []
--- NOTE | 2020-08-26 11:18 | BH.SGPN.GN ---
Behaviors/Verbalizations/Mental Status: []Client alert and oriented, casually dressed and groomed. Eye contact good. Motor activity appropriate. Speech within normal limits. Affect congruent, mood euthymic. Thoughts linear, logical, no signs of hallucinations or delusions. Client Response/Progress/Benefit: []Client an active participant throughout AEB contributing to discussion, taking notes, and providing supportive feedback. Client participated in the group activity highlighting the various barriers to effectively utilizing supports and strategies the group used. Client participated in discussion of the four types of support (emotion, tangible, informational, and social) and gave examples for all types. Client reports wanting to work on increasing emotional and social support. Client plans to do this by being more vulnerable with friends and allowing herself to accept help. Client seemed to benefit from identifying the type of support she wants to improve. Client has been practicing thought challenging, but continues to struggle with communicating effectively at home. Client to continue in [facility] tx to promote gains, improve interpersonal effectiveness skills, and increase self-esteem. Narrative Note: []
== END 2020-08-26 23:59 ==
LOC: BHIOP 09:00
PROVIDERS: Referring Provider Psychiatry & Neurology Psychiatry; Visit Provider Psychiatry & Neurology Psychiatry
DX: O99.343 Other mental disorders complicating pregnancy, third trimester (principal); Z3A.34 34 weeks gestation of pregnancy; F33.2 Major depressive disorder, recurrent severe without psychotic features
CPT/HCPCS: 90792; 99213; H0035; H2012; H2020; T1002; 90832; 90834

== ENCOUNTER 2020-08-30 09:00 | Outpatient (RCR) | payer MEDICAID, SELFPAY ==
[2020-08-27 00:37] VITALS: BP 128/79; PULSE 116
--- NOTE | 2020-08-30 09:00 | BH.SGPN.GN ---
Behaviors/Verbalizations/Mental Status: [] Eye contact is poor. Motor activity is appropriate. Appearance is casual. Speech is Appropriate. Mood is euthymic. Affect is full. Thoughts are linear and logical. No evidence of psychosis. No suicidal thoughts reported Client Response/Progress/Benefit: [] Pt was an active participant in group discussion. Emotion for today is optimistic. Daily symptom tracker notes 1/5 for depression and 2/5 for anxiety which is improved from last week. Shared that she had a good weekend. Processed the anger outburst that occurred last week with her . Believes that they have learned something from the event. Insight that she had more control of her emotions than she initially thought and could have utilized different skills to walk away and manage her emotions. Communicating more effectively with her . Goal for the new year is to meditate. Progress noted per pt report. Will continue in IOP to prevent decompensation, stabilize mood, and increase healthy coping skills. Narrative Note: []
--- NOTE | 2020-08-30 10:15 | BH.SGPN.GN ---
Behaviors/Verbalizations/Mental Status: []Client alert and oriented, casually dressed and appropriately groomed. Eye contact good. Motor activity appropriate. Speech within normal limits. Affect congruent, mood euthymic. Thoughts linear, logical, no signs of hallucinations or delusions. Client Response/Progress/Benefit: []Client was an engaged participant AEB taking notes, providing input, and attentively listening throughout. Connected with group topic of perspective and the impacts of one?s perspective on mental health. client stated our experiences and how we were raised impact how our perspective has formed. Client worked with the group to identify how a negative perspective can impact mental health which included: self-fulfilling prophecy, maintain unhealthy coping, prevent progress and lead to more negative thinking.?Client contributed as group discussed ways a positive perspective can impact mental health. Client appeared to benefit from increasing understanding of mental health benefits of a positive perspective and potential consequences to progress when perspective is negative. Progress noted by pt's continued report of improved mood and improved communication with . Client is to continue IOP to maintain gains, continue to challenge negative thoughts and prevent decompensation. Narrative Note: []
--- NOTE | 2020-08-30 11:15 | BH.SGPN.GN ---
Behaviors/Verbalizations/Mental Status: []Client alert and oriented, casually dressed and groomed. Eye contact good. Motor activity appropriate. Speech within normal limits. Affect congruent. Mood agitated. Thoughts linear, logical, no signs of hallucinations or delusions. Client Response/Progress/Benefit: []Client responded well to session, actively participating. Connected with the benefits of recognizing personal strengths on improving mental health which included: increased self-confidence, improved self-esteem, and better follow through. Client able to identify personal strengths she possesses which included: love of learning, curiosity, persistence, empathy, and assertiveness. Group discussed how personal strengths can help client make progress for mental health and identified strategies to help them acknowledge strengths more often. Client shared she has been practicing self-compassion by turning her empathy inward and catching negative self-talk. Appeared to benefit from recognizing personal strengths and identifying strategies to increase recognition of strengths. Will continue IOP tx to promote mood stability and further improve functioning. Narrative Note: []
--- NOTE | 2020-09-01 09:05 | BH.SGPN.GN ---
Behaviors/Verbalizations/Mental Status: []Client alert and oriented, casually dressed and appropriately groomed. Eye contact fair. Motor activity appropriate. Speech within normal limits. Affect congruent. Mood euthymic, slightly sad. Thoughts linear, logical, no signs of hallucinations or delusions. Client Response/Progress/Benefit: []Pt responded well to session AEB pt listening attentively to peers and sharing thoughts and feelings. Pt reported yesterday she found out that she did not get the job she applied to a couple weeks ago. Pt stated she is trying to not personalize not getting the job. Pt reported she is frustrated because it really seemed she got the job but can't help think she didn't get it because she is currently . Pt reported she applied for another job and got an e-mail this morning wanting to schedule an interview. Progress noted with pt being able to stay motivated and challenge thoughts. Pt is to continue IOP to continue use of healthy coping, distorted thoughts, and prevent decompensation. Narrative Note: []
--- NOTE | 2020-09-01 11:06 | PCM.BH.PN_ITS ---
Progress Note Progress Note: History of Present Illness/Interim History: [] Patient is a 35-year-old female who I last saw 3 weeks ago and is seen today in follow-up at the [facility] behavioral health IOP program. She is now 37 weeks estimated gestational age for her current . I last saw the patient 3 weeks ago. Patient says that she feels that the IOP program is really helping her and she is learning valuable tools that she can use to manage stress in her life at home and at work. The patient said that her mood seems to have plateaued on the Zoloft or maybe gotten a little worse. She feels more irritable and anxious and she feels that her anxiety over being unable to get the things done that she wants to accomplish makes her get irritable and angry. She is getting about 7 or 8 hours of sleep at night and does feel fatigued but this could be due to her term almost term intrauterine . She is still interviewing for jobs and has an interview scheduled for tomorrow which she is very much looking forward to. She did have an episode of anger outburst a few days ago where she actually even threw things but she states that she is starting to understand what triggers these. She feels more excited and is looking forward to delivering her in utero baby also. She may get induced around 39 weeks or so of . She denies suicidal ideation, homicidal ideation, thoughts of or any symptoms of marcella. Current Psychiatric Medications: [] Zoloft 25 mg p.o. daily (x5 weeks now). Mental Status Examination: [] Patient is seen wearing a mask due to the pandemic and appears as a normal 35-year-old term female who is casually dressed and groomed with good hygiene. She has no psychomotor agitation or retardation. Eye contact is good and speech is normal rate and rhythm and fluent with no pressure. Mood is euthymic. Affect is full and normal. Thought process is goal-directed and organized. Thought content: No evidence of suicidal or homicidal ideation. No evidence of hallucinations or delusions. Judgment is intact. Insight: Some present. Impulsivity: Low. Diagnoses: [] Lewellen I: [] Major depressive disorder, recurrent, severe without psychosis (improving); anxiety disorder, NOS Lewellen II: [] Deferred Lewellen III: [] 37-week intrauterine , scoliosis Lewellen IV:[]] Primary support, financial and job issues Plan: [] The patient will continue the IOP program at [facility] as the structure, support, education, individual and group therapy will hopefully prevent worsening of the patient's symptoms. She felt safe during the interview and if it anytime she does not feel safe she will let us know or go to the emergency room. The risk, options, possible complications and side effects of the medications were discussed with the patient and she understands accepts these in addition to the risks in end of breast-feeding. She agrees to increase her Zoloft to 50 mg p.o. daily. A prescription was sent in for this. She will watch carefully for any signs of hypomania and I will see the patient in follow-up in 1 week. She will continue to follow-up with her outpatient medical and psychiatric providers.
--- NOTE | 2020-09-01 11:11 | BH.SGPN.GN ---
Behaviors/Verbalizations/Mental Status: []Client alert and oriented, casually dressed and groomed. Eye contact fair. Motor activity appropriate. Speech within normal limits. Affect constricted, mood dysthymic and frustrated. Thoughts linear, logical, no signs of hallucinations or delusions. Client Response/Progress/Benefit: []Client engaged in session AEB contributing to discussion and taking notes. Client did well to participate during the activity in which participants were challenged to eliminate various items through group consensus. Client reported her group focused on prioritizing what was important which helped them be successful. Client contributed to discussion of the barriers that occurred during the activity as well as the conflict resolution strategies. Client reviewed the worksheet on fair fighting rules to cope with conflict and client selected taking turns while speaking as the skill client would like to improve. Appeared to benefit from learning strategies to better manage conflict. Progress noted in client?s ability to challenge her perspective after not getting the job she hoped for. Will continue IOP tx to promote mood stability and further increase use of healthy coping skills. Narrative Note: []
--- NOTE | 2020-09-01 15:18 | BH.MDN ---
Multi-Disciplinary Note - Note 45-min Individual Time Started:: 10:35 Date: 09/01/20 Purpose of session/treatment goals addressed:: Purpose of session was to address goal 1 from master treatment plan and discuss aftercare plans. Eye Contact:: Good Motor Activity:: Appropriate Appearance:: Casual Speech:: Appropriate Mood:: Euthymic Affect:: Full Thoughts:: Linear, Logical, No evidence of hallucinations/delusions noted Staff Interventions:: Therapist used open ended questions to elicit pt's current symptoms and stressors. Therapist processed recent stressor of being rejected from job interviewed for two weeks ago. Gently challenged pt's distorted thoughts and perspective. Discussed tentative discharge plans for next week. Gave homework for patient to schedule appointemnt with her outpatient therapist. Client Response:: Pt reported she is feeling upset about being turned down for the position she just interviewed for recently. pt stated she really thought she had it because her references had been called. Pt expressed frustration that people are not hiring her becasue she is . Pt stated she did spiral a bit last night and started to think no one is going to hire me. With assistance from therapsit pt able to recognize that she has been getting many opportunties recently and there will likely be many opportunities for jobs when she is no longer . Pt reported yesterday she applied for another job and got a response this morning for an interview. Pt stated she is hopeful she will eventually find a job and trying to remind herself that every interview she has is good practice for the next interview. Pt stated on a positive note she has been working on communicating with her family when she needs space. Pt reported she continues to open up to her about what she is learning while at [facility]. Stated this continues to strengthen their relationship. Pt agreeable to schedule appointment with outpatient counselor Harriet Melissa for when pt discharges from [facility]. Risks/Concerns:: denies suicidal ideation, plan or intention to date. future focused. Progress Toward Goals/Plan:: Prgoress noted with pt reporting imporved mood, demonstraing improved communication, reporting no suicidal thoughts and utilizing skills more consistently outside treatment environment. Plan is for pt to schedule with outpaitient counselor and discharge from [facility] next week. Time Stopped:: 11:25
--- NOTE | 2020-09-06 09:05 | BH.SGPN.GN ---
Behaviors/Verbalizations/Mental Status: [] Eye contact is good. Motor activity is appropriate. Appearance is casual. Speech is Appropriate. Mood is anxious. Affect is congruent. Thoughts are linear and logical. No evidence of psychosis. Reviewed daily check in sheet and no reports of suicidal ideations. Client Response/Progress/Benefit: [] Pt was an active participant in group discussion on the impact of gaslighting in mental health. Emotion for today is excited. Shared with the group increased energy over the weekend. Accomplishing more tasks and managing set-backs. She has another interview today and is reframing thoughts over not getting hired in the past. Understands that interviews will not dry up after she has the baby. Ruminations and dwelling about proper way to have her baby (induction vs natural). Wants to go with induction however feels that other would criminal judge her. Group pointed out that she is basing her decisions on what others (people she has not met) will think rather than what she wants. Insight that she often ruminates on societal and social pressure. Progress noted per pt report. Benefited from education and insight during group discussion and support/feedback from peers. Will continue in IOP to maintain gains. Narrative Note: []
--- NOTE | 2020-09-06 10:10 | BH.SGPN.GN ---
Behaviors/Verbalizations/Mental Status: []Client alert and orient. Appearance casual and appropriately groomed. Speech an appropriate rate and tone. Motor activity WNL. Mood euthymic, affect congruent. No evidence of delusion or hallucinations.? Client Response/Progress/Benefit: []Client responded well to session, attentive and contributing to discussion. Group discussed potential barriers to communication including: yelling, name-calling, unmanaged emotions, facial expressions, and shutting down. Client shared personal examples of communication barriers she has experienced with her in the past. Attentive during psychoeducation on the four communication styles. Client self-reports that she is typically assertive and aggressive, but prior to coming to IOP client was being ?very passive.? Progress noted in increased insight into personal communication styles and barriers. Client to continue in IOP tx to improve emotional regulation skills, reduce negative thinking, and improve communication skills. Narrative Note: []
--- NOTE | 2020-09-06 11:15 | BH.SGPN.GN ---
Behaviors/Verbalizations/Mental Status: []Client alert and oriented, neatly dressed and groomed. Eye contact good. Motor activity appropriate. Speech WNL. Affect full, mood euthymic. Thoughts linear, logical, no signs of hallucinations or delusions. Client Response/Progress/Benefit: []Client responded well to session AEB client listening attentively to others and providing input during group discussion on the pay offs and costs of the different communication styles. Attentive during psychoeducation on interpersonal skill of CATHY and client selected an communication skill to practice. Client selected the skill of working on mindfulness when communicating so she doesn't get sidetracked from the topic of conversation. Client seemed to benefit from increasing awareness of healthy strategies to improve communication. Progress noted with pt reporting improved mood, increased motivation and improved ability to challenge negative thoughts. Will continue IOP tx to prevent decompensation, continue use of healthy skills and maintain gains. Narrative Note: []
--- NOTE | 2020-09-08 09:00 | BH.SGPN.GN ---
Behaviors/Verbalizations/Mental Status: []Client alert and oriented, casually dressed and groomed. Eye contact good. Motor activity appropriate. Speech within normal limits. Affect congruent, mood agitated and anxious. Thoughts linear, logical, no signs of hallucinations or delusions. Reviewed client?s symptom tracker, no report of SI, plan, or intent as of 09/08/20. Client Response/Progress/Benefit: []Client responded well to session, providing supportive statements to peers. Client reports feeling anxious, tense, and uncomfortable this morning. Client shared a positive and stressor today was that I was anxious and snappy, but I was able to identify where it's coming from. Client is and due soon, so client states she is constantly uncomfortable physically which impacts sleep and mood. Client stated she has been trying to practice self-talk, calming skills, and communication with her to manage her emotions. Receptive to encouragement and feedback from group. Appeared to benefit from practicing self-compassion and reflecting on progress. Will continue IOP tx to promote gains, further improve mood, and reinforce healthy coping skills. Narrative Note: []
--- NOTE | 2020-09-08 10:05 | BH.SGPN.GN ---
Behaviors/Verbalizations/Mental Status: [] Eye contact is good. Motor activity is appropriate. Appearance is casual. Speech is Appropriate. Mood is anxious. Affect is congruent. Thoughts are linear and logical. No evidence of psychosis. Client Response/Progress/Benefit: [] Pt was an active participant in group discussion and was attentive during psychoeducation. Provided input on the quote of the day. Group was primarily educational and introduced and gave examples of the 10 cognitive distortions. Pt provided some examples of personal experiences for certain cognitive distortions. Benefited from education and increased awareness of cognitive distortions and role that they play in negative thoughts and emotions. Will continue in IOP to maintain gains. Narrative Note: []
--- NOTE | 2020-09-08 11:15 | BH.SGPN.GN ---
Behaviors/Verbalizations/Mental Status: []Client alert and oriented, casual neat, hygiene tended to. Eye contact good. Motor activity appropriate. Speech within normal limits. Affect congruent. mood euthymic. Thoughts linear, logical, no signs of hallucinations or delusions. Client Response/Progress/Benefit: []Client was an active participant AEB client providing input throughout session, listening attentively to peers and completing worksheet. Client attentive during psychoeducation and additional discussion on cognitive distortions. Client engaged in discussion about how to reframe distorted thoughts into more realistic, rational statements. Client shared her distorted thought is I should have helped my with his responsibilities for his school. Client able to reframe distorted thought to I am not responsible for my 's responsibilities, it is okay to provide support but take over the responsibilities for him. Client seemed to benefit from practicing identifying and reframing distorted thoughts. Progress noted with client identifying improved mood and increased insight. To continue IOP to continue use of healthy coping skills and prevent decompensation. Narrative Note: []
--- NOTE | 2020-09-08 12:30 | PCM.BH.PN ---
Progress Note Progress Note: History of Present Illness/Interim History: [] Patient is a 35-year-old female who is seen in follow-up at the [facility] behavioral health IOP program. She is now 38 weeks estimated gestational age for her current . I last saw the patient about 1 week ago and at that time her Zoloft was increased to 50 mg p.o. daily. The patient is tolerating the medication well and feels more hopeful and quite motivated lately. She had mild nausea when she first increase the dose of Zoloft but this has now resolved. She is still a little irritable and anxious but feels this is more due to being nearing the end of her . Her sleep is somewhat decreased in the past week due to discomfort with her term . She denies any symptoms of hypomania or marcella. She denies any suicidal ideation or passive thoughts.of . She has 3 possible jobs that she is interviewing for and is hopeful for the future. She feels her marriage is doing better and states that her is now getting individual counseling. She denies any suicidal thoughts and denies any passive thoughts of . Current Psychiatric Medications: [] Zoloft 50 mg p.o. daily (x1 week now). Mental Status Examination: [] Patient is a 35-year-old female with a term intrauterine who appears normal for stated age and is casually dressed and groomed with good hygiene. She has no psychomotor agitation or retardation. She is seen wearing a mask due to the pandemic. Eye contact is good and speech is normal rate and rhythm and fluent with no pressure. Mood is euthymic. Affect is full and normal. Thought process is goal-directed and organized. Thought content: No evidence of suicidal or homicidal ideation. No evidence of hallucinations or delusions. Patient is hopeful for the future and looks forward to delivering her baby next week. Judgment is intact. Insight: Some present. Impulsivity: Low. Diagnoses: [] [place] I: [] Major depressive disorder, recurrent, severe without psychosis (resolving); anxiety disorder, NOS [place] II: [] Deferred [place] III: [] 38-week intrauterine , scoliosis [place] IV:[]] Primary support, financial and job issues Plan: [] The patient will continue the IOP program and probably will be discharged at the end of this week. She feels the program has really benefited her. She felt safe during the interview and if it anytime she does not feel safe she will let us know or go to the emergency room. The risks, options, possible complications and side effects of medications including in and breast-feeding were discussed with the patient again and she understands and accepts these. She will continue her Zoloft at 50 mg p.o. daily. She will continue to follow-up with her outpatient medical and psychiatric providers and [employer] providers.
--- NOTE | 2020-09-10 10:10 | BH.SGPN.GN ---
Behaviors/Verbalizations/Mental Status: []Client alert and oriented, neatly dressed and groomed. Eye contact good. Motor activity appropriate. Speech within normal limits. Affect congruent, mood euthymic. Thoughts linear, logical, no signs of hallucinations or delusions. Client Response/Progress/Benefit: []Client was an active participant AEB contributing to discussion and participating in activity. Connected with the topic of pitfalls and helped the group discuss barriers that keep them from choosing a healthier path to mental wellness such as pitfalls. Group worked together to identify examples of personal pitfalls which included; avoidance behaviors, self-comparison, isolation, personalizing, catastrophizing, all or nothing thinking, and not meeting high expectations. Client shared her personal pitfalls as isolating, personalizing, catastrophizing, and avoiding. Engaged during the activity and took on a leadership role. Client benefited from group as she learned her barriers from improving her mental symptoms. Progress noted as client remained calm and was able to help guide other group members to accomplish their goals. Client will be discharged as client met all treatment goals and no longer meets IOP criteria. Narrative Note: []
--- NOTE | 2020-09-10 10:15 | BH.MDN ---
Multi-Disciplinary Note - Note 45-min Individual Time Started:: 09:25 Date: 09/10/20 Purpose of session/treatment goals addressed:: Purpose of session was to review treatment progress, identify strategies to maintain progress and identify aftercare plans. Eye Contact:: Good Motor Activity:: Appropriate Appearance:: Casual Speech:: Appropriate Mood:: Euthymic Affect:: Full Thoughts:: Linear, Logical, No evidence of hallucinations/delusions noted Staff Interventions:: CBT techniques, discharge planning, strengths perspective, reviewed DSM-5 Client Response:: Pt reported her mom is in town to help out when the baby is born in a few days. Pt stated she has a complicated relationship with her mom because of past situations and comments when pt was younger. Pt reported her mom can be good with her kids so knows it will be helpful to have more support with the new baby coming. Pt reported she had got a job offer for a job in [place] and has several other job interviews coming up. Pt stated she is hopeful she will get a job that is of interest to her. Pt identified treatment progress since starting [facility] to include: gaining new perspective, feel more stable, able to challenge negative thoughts, improved communication, improved coping skills, no suicidal thoughts, and able to acknowledge when needs help from others. Pt identified strategies that can help her maintain success include: thought challenge, opposite action, communicating openly with supports, remember value is intrinsic, focus on what's in her control, and be mindful of distorted thoughts. Pt stated she still needs to contact [facility] to set up counseling. Plans to do that this week. Pt reported feels more stable and ready for discharge. Risks/Concerns:: Denies suicidal ideation, plan or intention to date. Progress Toward Goals/Plan:: Progress noted with pt reporting decreased depression, no suicidal thoughts, ability to challenge distorted thoughts, increased focus on what's in her control, and mood stability. Plan is for pt to discharge from [facility] today. Pt will be giving in a couple days and is encouraged to contact [facility] to get counseling appointment prior to baby coming. Pt understands and agrees with plan. Time Stopped:: 10:10
--- NOTE | 2020-09-10 11:10 | BH.SGPN.GN ---
Behaviors/Verbalizations/Mental Status: []Client alert and oriented, neatly dressed and groomed. Eye contact good. Motor activity appropriate. Speech within normal limits. Affect congruent, mood euthymic. Thoughts linear, logical, no signs of hallucinations or delusions. Client Response/Progress/Benefit: []Client receptive of session, engaged throughout AEB client participating in discussion and taking notes. Client completed a worksheet where client identified personal pitfalls impacting mental health progress. Client?s pitfalls included: personalizing and minimizing, should statements, unrealistic expectations, isolation, and boundary setting. Attentive and contributing during group brainstorm of strategies to overcome pitfalls. Client stated she will work on overcoming her pitfalls by continuing to practice self-reflection. Benefited from identifying personal pitfalls and strategies to overcome these pitfalls. Client?s last day of IOP tx and has made significant progress in reducing depression and negative thoughts. Will discharge as client no longer meets IOP level of care. Narrative Note: []
--- NOTE | 2020-09-10 15:16 | BH.DS ---
Discharge Summary - Demographics Discharge Date: 09/10/20 - Treatment Discharge Handout: Complete Discharge Handout with client on aftercare options and continuity of care.
== END 2020-09-10 14:00 | disposition home or self-care (01) ==
LOC: BHIOP 09:00
PROVIDERS: Referring Provider Psychiatry & Neurology Psychiatry; Visit Provider Psychiatry & Neurology Psychiatry
DX: O99.343 Other mental disorders complicating pregnancy, third trimester (principal); Z3A.38 38 weeks gestation of pregnancy; F33.2 Major depressive disorder, recurrent severe without psychotic features; F41.9 Anxiety disorder, unspecified; M41.9 Scoliosis, unspecified
CPT/HCPCS: 99213; 99214; H0035; H2012; H2020; 90834

== ENCOUNTER → 2020-09-09 10:17 | Outpatient (CLI) | payer MEDICAID, SELFPAY | PROVIDERS: Visit Provider Obstetrics & Gynecology | DX: Z03.818 Encounter for observation for suspected exposure to other biological agents ruled out (principal) | CPT/HCPCS: 87635; C9803; U0005; U0003 ==

== ENCOUNTER 2020-09-13 12:00 | Inpatient (IN) | payer MEDICAID, SELFPAY ==
[2020-09-13] VITALS (33 sets, daily range): BP systolic 113–163; BP diastolic 70–98; PULSE 79–237; RESP 16–18; TEMP 36.6–37.1; O2SAT 84–100; BMI 27.9
--- NOTE | 2020-09-13 12:20 | PCM.HP.OB ---
- Problem List (1) Anemia affecting Status: Resolved (2) Active labor at term Status: Acute (3) History of delivery of macrosomal Status: Acute (4) LGA (large for gestational age) fetus Status: Acute History Date of Admission: 09/13/20 Final FATUMA: 09/22/20 Final FATUMA Source: US <20 weeks Gestational age: 38 Weeks and 5 Days History of this : This is a 35 year-old, G [3], P [2], at 38.5 weeks gestational age that presents in active labor. Patient started having contractions a couple of days ago. They continued to get stronger and closer together this morning. Denies any loss of fluid, vaginal bleeding and stated positive movement. was complicated by anemia and depression. is LGA at 99%. Growth US completed on 09/09/20. Patient has a history of macrosomia infant with vacuum delivery. Medical History: Medical History (Last Reviewed 09/07/20 @ 14:10 by Suzie Vasquez) Anxiety disorder, unspecified F41.9 Major depressive disorder, recurrent severe without psychotic features F33.2 Scoliosis M41.9 Allergies No Known Allergies Allergy (Verified 09/13/20 12:09) Home Medications: Home Medications Vits [Prenatabs FA] 1 tab PO DAILY 03/05/20 Famotidine 20 mg PO BID 07/28/20 Ferrous Sulfate [Iron] 325 mg PO BID 07/28/20 Sertraline HCl [Zoloft] 50 mg PO DAILY 09/13/20 Smoking Status: Never smoker Number of Fetus(es): 1 NST - FHR Rate Baby A Baseline: 140 Variability:: Moderate Accelerations:: 15 x 15 Decelerations:: None NST Reactive:: Yes FHR Category:: Category I Uterine Activity:: TOCO 2-3 minutes History Past Pregnancies: Past Pregnancies Delivery Date Name GA/ Weeks Outcome Route Wt Sex Labor Length Anesthesia Delivery Location Provider FOB Labs: A+ Rubella - immune HB- negative HC negative RPR- NR HIV- NR GC/CH- negative COVID- 19 -negative on 09/09/20 GBS- negative Expected Delivery Method: Spontaneous Vaginal Review of Systems Constitutional: Denies: Anorexia, Fever HEENT: Denies: Head Aches Cardiovascular: Denies: Chest Pain Respiratory: Denies: Cough, Shortness of Breath Gastrointestinal: Denies: Abdominal Pain Genitourinary: Denies: Dysuria Psychiatric: Reports: Anxiety, Depression Physical Exam Vitals: Vital Signs Temp Pulse BP Pulse Ox 98.7 F 105 H 135/95 H 98 09/13/20 12:10 09/13/20 12:11 09/13/20 12:10 09/13/20 12:11 General: Alert, Oriented x3, Cooperative HEENT: Atraumatic Cardiovascular: Regular rate Lungs: Normal air movement Abdomen: Soft, Non Tender Neurological: Cranial nerves II-XII grossly intact Cervix Dilation (cm): 5 Assessment/Plan All Active Problems (Last Reviewed 09/07/20 @ 14:10 by Suzie Vasquez) Post-term , 40-42 weeks of gestation (Resolved) Anemia affecting (Resolved) HSIL (high grade squamous intraepithelial lesion) on Pap smear of cervix (Acute) Segmental and somatic dysfunction of sacral region (Acute) Segmental and somatic dysfunction of lumbar region (Acute) Segmental and somatic dysfunction of cervical region (Acute) Back pain (Acute) Active labor at term (Acute) History of delivery of macrosomal infant (Acute) LGA (large for gestational age) fetus (Acute) Segmental and somatic dysfunction of thoracic region (Acute) This is a 35 year-old, G [3], P [2], at 38.5 weeks gestational age. Admit to labor and delivery Routine labs IV fluids per policy GBS negative NST reactive, Category 1 tracing Patient to get epidural when indicated Possible AROM after epidural placed Anticipate Dr. Nagel aware of admission and is collaborating physician
[2020-09-13 12:34] LABS: Absolute Lymphocyte Count 2.02 X10^3/uL (0.83-4.51); Absolute Neutrophil Count 5.1 X10^3/uL (2.0-7.7); Basophil# 0.02 X10^3/uL; Basophil% 0.3 % (0-1); Eosinophil# 0.05 X10^3/uL; Eosinophils% 0.6 % (0-5); Hematocrit 36.7 % (37-47); Lymphocyte # 2.02 X10^3/ul (4.0); Lymphocyte % 26.1 % (19-41); Mean Corp Hgb Conc 32.7 g/dL (32-36); Mean Corpuscular Hgb 27.5 pg (27.0-32.0); Mean Corpuscular Volume 84.2 fL (81-99); Mean Platelet Vol. 10.3 fl (6.2-12.0); Monocyte# 0.54 X10^3/uL; NRBC Flagged by Analyzer 0 % (0-5); Neutrophil # 5.07 X10^3/uL (2.7-7.7); Neutrophil % 65.6 % (47-70); Platelet Count 264 K/mm3 (150-450); RBC Distribution Width CV 13.2 % (11.6-14.6); RBC Distribution Width SD 40.8 fl (35.1-43.9); Red Blood Count 4.36 M/mm3 (4.2-5.4); White Blood Count 7.7 K/mm3 (4.4-11.0)
[2020-09-13] MEDS: Lactated Ringers 500 ML 999 ML IV (12:50)
[2020-09-13] MEDS: Lactated Ringers 1,000 ML 50 ML IV (12:55)
[2020-09-13] MEDS: fentaNYL-bupivacaine (epidural) 100 ML BAG EPIDURAL (13:21)
--- NOTE | 2020-09-13 14:44 | PCM.PN.BLA ---
Progress Note Patient feeling pressure in bottom. Denies pain since placement of epidural. Category 1 tracing NST reactive /-1 with bulging bag A.R.O.M for large amount of clear fluid Continue plan of care Anticipate Dr. Nagel updated STROKE Vital Signs/Narrative: Vital Signs Temp Pulse BP Pulse Ox 09/13/20 13:57 99 134/91 H 09/13/20 13:52 98 150/73 H 09/13/20 13:47 90 125/76 H 09/13/20 13:45 98.6 F 09/13/20 13:42 88 120/75 09/13/20 13:36 88 117/70 85 09/13/20 13:33 100 131/82 H 09/13/20 13:32 98 09/13/20 13:28 90 98 09/13/20 13:26 109 H 123/76 H 09/13/20 13:22 101 H 98 09/13/20 13:21 100 137/81 H 09/13/20 13:18 104 H 88 09/13/20 13:16 96 146/98 H 09/13/20 13:13 103 H 100 09/13/20 13:11 96 163/98 H 09/13/20 13:07 83 143/93 H 99 09/13/20 13:04 237 H 84 09/13/20 12:11 105 H 98 09/13/20 12:10 98.7 F 96 135/95 H 98
--- NOTE | 2020-09-13 16:26 | PCM.PN.BLA ---
Progress Note Patient feeling pressure and wanting to bear down. Category 1 tracing NST reactive CE- 10/100/0 Patient to start pushing Anticipate STROKE Vital Signs/Narrative: Vital Signs Temp Pulse BP Pulse Ox 09/13/20 15:29 82 113/72 09/13/20 13:57 99 134/91 H 09/13/20 13:52 98 150/73 H 09/13/20 13:47 90 125/76 H 09/13/20 13:45 98.6 F 09/13/20 13:42 88 120/75 09/13/20 13:36 88 117/70 85 09/13/20 13:33 100 131/82 H 09/13/20 13:32 98 09/13/20 13:28 90 98 09/13/20 13:26 109 H 123/76 H 09/13/20 13:22 101 H 98 09/13/20 13:21 100 137/81 H 09/13/20 13:18 104 H 88 09/13/20 13:16 96 146/98 H 09/13/20 13:13 103 H 100 09/13/20 13:11 96 163/98 H 09/13/20 13:07 83 143/93 H 99 09/13/20 13:04 237 H 84
[2020-09-13] MEDS: Ondansetron 4 MG/2 ML Vial IV (16:47)
[2020-09-13] MEDS: Oxytocin 30 units/NS 500 ml 30 UNITS/500 ML IV.SOLN 334 UNITS IV (17:23)
--- NOTE | 2020-09-13 17:33 | PCM.OPRPT ---
Problem List (1) Anemia affecting Status: Resolved (2) Active labor at term Status: Acute (3) History of delivery of macrosomal infant Status: Acute (4) LGA (large for gestational age) fetus Status: Acute Report of Operation Date of Procedure: 09/13/20 Pre-Operative Diagnosis: Term gestation, Spontaneous labor Post-Operative Diagnosis: same, live male infant Vaginal Delivery Maternal Presentation: Active Labor Amniotic Membrane Rupture Type: Artificial Amniotic Fluid Description: Clear Final FATUMA: 09/22/20 Gestational age: 38 Weeks and 5 Days Date of Procedure: 09/13/20 Pre-Operative Diagnosis: Term gestation, spontaneous labor Post-Operative Diagnosis: same, live male Surgery/ Procedure Performed: Spontaneous Vaginal Delivery Type of Anesthesia: Epidural Description of Procedure: Patient pushing well with contractions. Head of baby delivered with minimal effort followed by anterior, posterior shoulders followed by remainder of . Vigorous male placed on maternal abdomen and attended to by nursing staff. True knot noted in 3 vessel cord. Cord clamped and cut after 2 minutes of delay. Pitocin IV started for active management of the third stage. Placenta delivered spontaneously and intact. Fundus firm at U. Bleeding minimal. After inspection, no lacerations noted. Minimal bleeding. EBL 200cc. APGARS 8/9. Mom bonding with and preparing to breastfeed. Dr. Nagel notified of delivery. Presentation: Vertex, CONSTANTINO Placental Delivery Description: Spontaneous Placenta Disposition: [facility] Cord Vessel Description: 3 Vessels Cord Entanglement: None, True Knot(s) - 1 true knot noted Estimated Blood Loss: 200 Infant A gender: Male (1 minute): 8 (5 minute): 9 Episiotomy Description: None Laceration: None Medications given after delivery: IV Pitocin Complications: None
[2020-09-13] MEDS: Acetaminophen 500 MG Tablet 1000 MG PO (18:14)
[2020-09-13] MEDS: Ibuprofen 600 MG Tablet PO (22:06)
[2020-09-14] MEDS: Acetaminophen 500 MG Tablet 1000 MG PO ×2 (02:58→12:02)
[2020-09-14 02:59] VITALS: BP 134/96; PULSE 76; RESP 18; TEMP 36.6; O2SAT 98
--- NOTE | 2020-09-14 08:26 | PCM.PN.OB ---
Patient Problems: Active and Suspected Problems (Last Reviewed 09/07/20 @ 14:10 by Suzie Vasquez) Active labor at term (Acute) History of delivery of macrosomal infant (Acute) LGA (large for gestational age) fetus (Acute) Subjective: pt seen at bedside, doing well. pt reports good pain control. lochia mild. Breast feeding. - Physical Exam Vitals/I&O's: Vital Signs Temp Pulse Resp BP Pulse Ox 97.8 F 76 18 134/96 H 98 09/14/20 02:59 09/14/20 02:59 09/14/20 02:59 09/14/20 02:59 09/14/20 02:59 Oxygen Delivery Method Room Air Weight: 76.2 kg Body Mass Index (BMI) 27.9 Intake and Output for Last 24 Hours 09/12/20 09/13/20 09/14/20 23:59 23:59 23:59 Intake Total 1220 / 1220 Output Total 700 / 700 Balance 520 / 520 General: Alert, Oriented x3 Abdomen: Soft, Non Tender, Non-Distended, - - fundus firm Extremities: No Calf Tenderness Laboratory Results 09/13/20 12:15: WBC 7.7, RBC 4.36, Hgb 12.0, Hct 36.7 L, MCV 84.2, MCH 27.5, MCHC 32.7, RDW Std Deviation 40.8, RDW Coeff of Zachariah 13.2, Plt Count 264, MPV 10.3, Immature Gran % (Auto) 0.400, Neut % (Auto) 65.6, Lymph % (Auto) 26.1, [place] % (Auto) 7.0, Eos % (Auto) 0.6, Baso % (Auto) 0.3, Absolute Neuts (auto) 5.1, Absolute Lymphs (auto) 2.02, Nucleated RBC % 0 09/13/20 12:15: Blood Type A POSITIVE, Antibody Screen NEGATIVE Current Medications Acetaminophen (Acetaminophen 500 Mg Tablet) 1,000 mg PO Q8H PRN PRN PRN Reason: Pain Score 1-3 Last Admin: 09/14/20 02:58 Dose: 1,000 mg Documented by: Bisacodyl (Bisacodyl 10 Mg Suppository) 10 mg RECTAL UD PRN PRN Reason: If no BM Dibucaine (Dibucaine 30 Gm Tube) 1 applic TOPICAL TID PRN PRN; Protocol PRN Reason: Discomfort Hydrocortisone (Hydrocortisone 2.5% Crm) 1 applic TOPICAL TID PRN PRN; Protocol PRN Reason: Discomfort Ibuprofen (Ibuprofen 600 Mg Tablet) 600 mg PO Q6H PRN PRN PRN Reason: Pain Score 1-3 Last Admin: 09/13/20 22:06 Dose: 600 mg Documented by: Methylergonovine Maleate (Methylergonovine 0.2 Mg/Ml Ampul) 0.2 mg IM X1 PRN PRN Reason: Excess bleeding/uterine atony Ondansetron HCl (Ondansetron 4 Mg/2 Ml Vial) 4 mg IV Q4H PRN PRN PRN Reason: Nausea Senna/Docusate Sodium (Senna/Docusate Sodium 1 Tablet) 1 - 2 tablet PO DAILY PRN PRN PRN Reason: Constipation Simethicone (Simethicone 80 Mg Tablet) 80 mg PO PCHS PRN PRN Reason: Indigestion/Stomach pain Sodium Chloride (0.9% Saline Lock 10 Ml Syringe) 5 - 15 ml IV UD PRN PRN Reason: SALINE FLUSH Medical Necessity - Tobacco Use Smoking Status: Never smoker Assessment/Plan All Active Problems (Last Reviewed 09/07/20 @ 14:10 by Suzie Vasquez) Post-term , 40-42 weeks of gestation (Resolved) Anemia affecting (Resolved) HSIL (high grade squamous intraepithelial lesion) on Pap smear of cervix (Acute) Segmental and somatic dysfunction of sacral region (Acute) Segmental and somatic dysfunction of lumbar region (Acute) Segmental and somatic dysfunction of cervical region (Acute) Back pain (Acute) Active labor at term (Acute) History of delivery of macrosomal (Acute) LGA (large for gestational age) fetus (Acute) Segmental and somatic dysfunction of thoracic region (Acute) PPD#1, doing well routine care pain mgmt dc home
--- NOTE | 2020-09-14 08:28 | DCINST_ITS ---
Discharge Diet: No Restrictions Discharge Activity: Return to Normal Activity, May not drive while taking narcotic pain medications., May Shower May resume sexual activity in: 4-6 weeks Additional Activity Instructions:: Nothing in the vagina for 4-6 weeks. You may return to work/school in 6 weeks. Call your doctor if your incision/area has: Continuous Slow Oozing, Sudden Increased Bleeding, Increased Pain/ Swelling, Increased Redness, Foul Smelling Discharge Additional Instructions: If you experience any of the following, contact your healthcare provider. * Bleeding that soaks a pad every hour for 2 hours * Fever 100.4 or higher * Unrelieved incision or abdominal pain * Swelling, redness, discharge or bleeding from your incision or episiotomy site * Your incision begins to separate * Problems urinating (including inability to urinate or burning while urinating). * Visual changes * Severe headache * Flu-like symptoms * Pain or redness in one of both of your breasts * Pain, warmth, tenderness or swelling in your legs, especially the calf area * Frequent nausea and vomiting * Symptoms of depression or anxiety If you experience any of the following, call 911 or go to the nearest Emergency Room. * Chest pain * Problems breathing * Seizure activity * Partial or complete paralysis of a body part, slurred speech, weakness or drooping of the face, or a sudden inability to walk or hold your balance Allergies/Adverse Reactions: Allergies No Known Allergies Allergy (Verified 09/13/20 12:09) Medications to take at Discharge Vits [Prenatabs FA ] 1 tab PO DAILY 03/05/20 Sertraline HCl [Zoloft] 50 mg PO DAILY 09/13/20 Ibuprofen [Motrin] 600 mg PO Q6H PRN PRN #30 tab 09/14/20 The following prescriptions were given: Ibuprofen [Motrin] 600 mg PO Q6H PRN PRN #30 tab PRN Reason: Pain Score 1-3 Transmission Status: Pending to [facility]/pharmacy #[id number] When: Call to make an appointment with your doctor in 1-2 weeks and again at 6 weeks. If you had elevated Blood Pressure or 4th degree laceration you will need to be seen in 2 weeks. Please Follow Up With: Candy Caballero CNM Primary Care Physician: Care Physician,No Primary [Primary Care Provider] - Test Results: Test results from this visit will be discussed in further detail at your follow- up appointment, if applicable.
[2020-09-14 08:55] VITALS: BP 122/82; PULSE 92; RESP 16; TEMP 36.4; O2SAT 96
[2020-09-14] MEDS: Ibuprofen 600 MG Tablet PO (09:02)
[2020-09-14] MEDS: Senna/Docusate Sodium 1 Tablet PO (09:02)
[2020-09-14 11:59] VITALS: BP 121/84; PULSE 82; RESP 169; TEMP 36.3
[2020-09-14 16:00] VITALS: BP 125/79; PULSE 96; RESP 16; TEMP 36.4
== END 2020-09-14 19:22 | disposition home or self-care (01) | DRG 560 ==
LOC: WPOUT 12:01 → WP 12:01
PROVIDERS: Admitting Provider Advanced Practice Midwife; Referring Provider Advanced Practice Midwife; Visit Provider Advanced Practice Midwife
DX: O36.60X0 Maternal care for excessive fetal growth, unspecified trimester, not applicable or unspecified (principal); Z3A.38 38 weeks gestation of pregnancy; Z37.0 Single live birth; O99.02 Anemia complicating childbirth; F32.9 Major depressive disorder, single episode, unspecified; O99.344 Other mental disorders complicating childbirth; M41.9 Scoliosis, unspecified; F41.9 Anxiety disorder, unspecified; M99.01 Segmental and somatic dysfunction of cervical region; M99.02 Segmental and somatic dysfunction of thoracic region; M99.03 Segmental and somatic dysfunction of lumbar region; M99.04 Segmental and somatic dysfunction of sacral region; O75.89 Other specified complications of labor and delivery; O69.2XX0 Labor and delivery complicated by other cord entanglement, with compression, not applicable or unspecified
CPT/HCPCS: 59025; 59050; 85025; 86850; 86900; 86901; 99218; J7120; G0378; J2405

== ENCOUNTER 2020-12-09 15:10 | Outpatient (RCR) | payer BC, MEDICAID, SELFPAY ==
[2020-09-13 12:13] VITALS: BMI 27.9
== END 2021-02-01 23:59 ==
LOC: IMMUN 15:10
PROVIDERS: Visit Provider Family Medicine
DX: Z23 Encounter for immunization (principal)
CPT/HCPCS: 0001A; 0002A; 91300

== ENCOUNTER 2022-03-28 18:52 | Emergency (ER) | payer OTHER, MEDICAID, SELFPAY ==
[2022-03-28 18:55] VITALS: BP 134/91; PULSE 134; RESP 17; TEMP 36.7; O2SAT 99; BMI 25.0
[2022-03-28 21:20] VITALS: BP 136/88; PULSE 84; RESP 18; O2SAT 99
[2022-03-28 22:18] VITALS: BP 140/71; PULSE 91; RESP 15; O2SAT 98
--- NOTE | 2022-03-28 22:22 | EDS_ITS ---
HPI History of Present Illness Chief Complaint: Upper Extremity Injury Narrative Narrative: 37-year-old female presenting with left thumb pain. She states that about a week ago she was doing laundry and poked a small hole into the dorsum of her left thumb just above her left thumbnail in the midline. She states that it was not severely traumatic. She states that it started hurting worse and worse and she feels pressure in this area. She was seen in an outside hospital and had x-rays done which were negative. Patient was given orthopedic follow-up for her hand and has an appointment on the of this month. Patient was seen by urgent care yesterday who started her on antibiotic. She states it drained 1 time and there is no drainage. She states it still feels like a pressure. She denies any trauma. No redness or warmth. She is able to range her thumb. [facility] Medical History Anxiety disorder, unspecified Major depressive disorder, recurrent severe without psychotic features Scoliosis Home Medications sertraline 50 mg tablet (Zoloft) 50 mg PO DAILY Check with primary doctor 09/13/20 [History Last Taken 09/12/20 00:00] ibuprofen 600 mg tablet 600 mg PO Q6H PRN PRN Pain Score 1-3 #30 tabs 09/14/20 [Rx Last Taken Unknown] cephalexin 500 mg capsule 500 mg PO TID 03/28/22 [History Last Taken Unknown] methylphenidate HCl 27 mg tablet,extended release 24 hr (Concerta) 27 tab PO DAILY 03/28/22 [History Last Taken Unknown] oxycodone-acetaminophen 5 mg-325 mg tablet (Endocet) 1 tab PO Q6H PRN pain 3 days #12 tabs 03/28/22 [Rx Last Taken Unknown] Allergy/AdvReac Type Severity Reaction Status Date / Time No Known Allergies Allergy Verified 09/13/20 12:09 Social History Smoking Status: Never smoker what type of physical activity do you participate in: yoga frequency: 5-6 times per week ROS ROS ED Constitutional Constitutional ED: Denies chills or fever(s) Eyes Eyes: Denies change in vision or diplopia ENT ENT ED: Denies rhinorrhea or sore throat Cardiovascular Cardiovascular: Denies chest pain or palpitations Respiratory/Chest Respiratory/Chest: Denies cough or dyspnea Gastrointestinal Gastrointestinal: Denies abdominal pain or constipation Genitourinary Genitourinary ED: Denies dysuria or hematuria Musculoskeletal Musculoskeletal: Denies back pain or myalgias Integumentary Reports other Details: Left thumb pain with. Fat exposure over the left thumbnail. EXAM Physical Exam Const Vital Signs: 03/28/22 18:55 03/28/22 21:20 03/28/22 22:18 Temperature 98.1 F Temperature Source Temporal Pulse Rate 134 H 84 91 Respiratory Rate 17 18 15 Blood Pressure 134/91 H 136/88 H 140/71 H Blood Pressure Mean 105 104 Pulse Ox 99 99 98 Oxygen Delivery Method Room Air Room Air Positive well nourished General Appearance ED: NAD HEENT Reports moist mucous membranes normocephalic and atraumatic Eyes PERRL and EOMs intact bilaterally Chest Wall inspection of chest normal and palpation of chest normal Resp normal respiratory effort and clear to auscultation bilaterally Extremity Extremity Narrative: Left thumb tender to palpation over the dorsal surface. There is no fluctuance here. The pad of the thumb is soft. There is no fluctuance here either. Lesion the area over the left thumbnail has a small section of adipose tissue which is exposed. There is no drainage from this area. There is no erythema, induration. Patient has full range of motion of her left thumb. Neuro oriented x3 and CN's II-XII intact bilaterally Sensorium / Orientation: alert Psych mental status grossly normal Skin Skin Narrative: As described above MDM MDM MDM Narrative Medical decision making narrative: Patient presented for evaluation of her left thumb pain. She is already had imaging and there is no fractures. She said no new injury. She states the pain is been constant this whole time and she has not had any relief from it. She is tried ibuprofen which is not helping. She has orthopedic follow-up on the . Looking in her thumb there is not appear to be any gross infection. There is some fat exposure here. Patient is on Keflex currently from the urgent care yesterday. She requested that I remove her fingernail or cut the fat out of her finger although I do not think that there is any indication that she needs her left thumb removed nor do I I think she needs an I&D because there is no fluctuance. This is an old injury and I do not think suturing it would be a good choice I do think she needs to see orthopedic hand. Because she is having pain here in the ibuprofen is not helping I will give her some Percocet for shakira n. A dressing was placed. She is counseled to continue doing the soaks with warm water and soap versus Epsom salts that she has been doing. Continue with Keflex as well. Impression: 1. Left thumb pain 2. Fat exposure left 3. Punctate left hand laceration?hold Lab Data Attestation: I reviewed the patient's lab results. Discharge Plan Triage Chief Complaint: Upper Extremity Injury ED Provider: Alvaro Hoang Dx/Rx/DC Orders Instructions: ED Contusion, Upper Extremity Prescriptions: New oxycodone-acetaminophen [Endocet] 5-325 mg tablet 1 tab PO Q6H PRN (Reason: pain) 3 Days Qty: 12 0RF No Action sertraline [Zoloft] 50 MG tablet 50 mg PO DAILY ibuprofen 600 MG tablet 600 mg PO Q6H PRN PRN (Reason: Pain Score 1-3) Qty: 30 0RF cephalexin [Keflex] 500 mg Capsule 500 mg PO TID methylphenidate HCl [Concerta] 27 mg tablet extended release 24hr 27 tab PO DAILY Label Comments: TAKE 1 TABLET BY MOUTH EVERY DAY Primary Care Provider: Adalgisa Aldana Referrals: Care Physician,No Primary [NON-STAFF] - Disposition Disposition: Home, Self Care Discharge Date/Time: 03/28/22 22:19
== END 2022-03-28 22:19 | disposition home or self-care (01) ==
LOC: ED 22:12
PROVIDERS: Emergency Provider Student in an Organized Health Care Education/Training Program; PCP Physician Assistant; Visit Provider Student in an Organized Health Care Education/Training Program
DX: S61.102A Unspecified open wound of left thumb with damage to nail, initial encounter (principal); F41.9 Anxiety disorder, unspecified; F32.A Depression, unspecified; M41.9 Scoliosis, unspecified; Z79.899 Other long term (current) drug therapy; W26.8XXA Contact with other sharp object(s), not elsewhere classified, initial encounter
CPT/HCPCS: 99282

== ENCOUNTER 2023-08-08 18:25 | Emergency (ER) | payer OTHER, SELFPAY ==
[2023-08-08 18:27] VITALS: BP 126/90; PULSE 88; RESP 16; TEMP 35.9; O2SAT 100; BMI 26.2
[2023-08-08] MEDS: 0.9% Normal Saline (1000mL) 1,000 ML 999 ML IV (21:00)
[2023-08-08] MEDS: Metoclopramide 10 MG/2 ML Vial IV (21:00)
[2023-08-08] MEDS: DiphenhydrAMINE 50 MG/ML Syringe 25 MG IV (21:01)
--- NOTE | 2023-08-08 21:24 | EX.ED.VIS.HA ---
HPI History of Present Illness Chief Complaint: Headache Informant: patient Onset/Context/Timing Onset: Today Context: Gradual Timing: Continuous Quality -Headache: Positive for Other (Pressure) Location: Right side Worsened by: Lights Relieved by: Nothing Associated Symptoms/Injury Associated Symptoms: Positive for Nausea, Blurred Vision and Photophobia; Negative for Fever, Vomiting, Sore Throat, Sinus Pressure, Numbness, Tingling, Preceding Aura or Visual Loss Narrative Narrative: Patient presents with a headache that began today. Patient states it came on gradually. Patient states it feels like a pressure. Patient states it is mainly on the right side of her head. Patient states that it started around her eye and now has spread to the parietal area behind her ear. Patient states nothing makes it better. Patient states it is worse with light. Patient admits to some blurry vision. Patient admits to some nausea but denies any vomiting. Patient denies any scotoma or auras. Patient denies any paresthesias or weakness. [facility] Medical History (Updated 08/08/23 @ 22:[address] Joseph Tesfaye DO) Anxiety disorder, unspecified Major depressive disorder, recurrent severe without psychotic features Scoliosis Home Medications ibuprofen 600 mg tablet 600 mg PO Q6H PRN PRN Pain Score 1-3 #30 tabs 09/14/20 [Rx Last Taken Unknown] methylphenidate HCl 27 mg tablet,extended release 24 hr (Concerta) 27 tab PO DAILY 03/28/22 [History Last Taken Unknown] Allergy/AdvReac Type Severity Reaction Status Date / Time No Known Allergies Allergy Verified 09/13/20 12:09 Surgical History no surgical history no surgical history Social History Smoking Status: Never smoker what type of physical activity do you participate in: yoga frequency: 5-6 times per week ROS ROS ED Constitutional Constitutional ED: Denies chills or fever(s) Eyes Eyes: Reports blurry vision; Denies diplopia ENT ENT ED: Denies rhinorrhea or sore throat Cardiovascular Cardiovascular: Denies chest pain or palpitations Respiratory/Chest Respiratory/Chest: Denies cough or dyspnea Gastrointestinal Gastrointestinal: Reports nausea; Denies vomiting Genitourinary Genitourinary ED: Denies dysuria or hematuria Musculoskeletal Musculoskeletal: Reports neck pain; Denies back pain Integumentary Denies abscess or rash Neurologic Neurologic: Reports headache(s); Denies weakness Allergic/Immunologic Allergic/Immunologic ED: Denies mouth swelling or urticaria EXAM Physical Exam Const Vital Signs: 08/08/23 18:27 Temperature 96.6 F L Temperature Source Temporal Pulse Rate 88 Respiratory Rate 16 Blood Pressure 126/90 H Blood Pressure Mean 102 Pulse Ox 100 Oxygen Delivery Method Room Air Positive well nourished and well developed General Appearance ED: well developed and NAD HEENT Reports moist mucous membranes Neck supple, no meningeal signs and no JVD Resp normal respiratory effort and clear to auscultation bilaterally Cardio regular rate and regular rhythm GI non-tender Palpation: soft Neuro oriented x3, CN's II-XII intact bilaterally and no sensory deficits noted Mehnaz Coma Scale: document GCS findings Spontaneous Obeys Commands Oriented 15 Sensorium / Orientation: awake and alert Speech: speech normal Motor Exam: strength 5/5 throughout Psych mental status grossly normal MDM MDM MDM Narrative Medical decision making narrative: Patient was advised that this could be a migraine headache. Patient was given IV fluids, Reglan, and Benadryl. Patient is feeling better after this. Patient was advised to rest in a dark quiet room. Patient was instructed to follow-up with her primary care physician in 5 to 7 days. Patient was instructed return if worse in any way. Patient understood and was agreeable with the plan. All questions were answered. Discharge Plan Triage Chief Complaint: Headache ED Provider: Joseph Tesfaye Dx/Rx/DC Orders Clinical Impression: Headache, migraine Instructions: ED Headache Unspecified, ED, Migraine (Classical) Prescriptions: No Action ibuprofen 600 MG tablet 600 mg PO Q6H PRN PRN (Reason: Pain Score 1-3) Qty: 30 0RF methylphenidate HCl [Concerta] 27 mg tablet extended release 24hr 27 tab PO DAILY Patient Comments: TAKE 1 TABLET BY MOUTH EVERY DAY Primary Care Provider: Adalgisa Aldana Referrals: Adalgisa Aldana PA [Primary Care Provider] - 5-7 Days Disposition Disposition: Home, Self Care
[2023-08-08 22:43] VITALS: RESP 14
== END 2023-08-08 22:43 | disposition home or self-care (01) ==
PROVIDERS: Emergency Provider Emergency Medicine; PCP Physician Assistant; Visit Provider Emergency Medicine
DX: G43.909 Migraine, unspecified, not intractable, without status migrainosus (principal)
CPT/HCPCS: 96361; 96374; 96375; 99283; J7030; A4216

== ENCOUNTER → 2024-07-23 | Outpatient (CLI) | payer OTHER, SELFPAY ==
--- NOTE | 2024-07-23 18:02 | CT_ITS ---
STUDY: CT MAXILLOFACIAL SINUSES REASON FOR EXAM: Female, 39 years old. SINUSITIS RADIATION DOSAGE (If Supplied By Facility): CTDIvol = ( 33.06 ) mGy, DLP = ( 627.24 ) mGycm TECHNIQUE: The patient was scanned in a multi detector CT scanner. High resolution axial imaging was performed without the administration of intravenous contrast material. Sagittal and coronal images were reconstructed. Individualized dose optimization techniques were used for this CT. The protocol utilizes one or more of the following dose reduction techniques: automated exposure control, adjustment of mA and/or kV according to patient size, and/or use of iterative reconstruction technique. COMPARISON: None. FINDINGS: FRONTAL SINUSES: Normal aeration, without mucosal inflammatory disease. ETHMOIDAL SINUSES: Normal aeration, without mucosal inflammatory disease. MAXILLARY SINUSES: Normal aeration, without mucosal inflammatory disease. SPHENOIDAL SINUSES: Normal aeration, without mucosal inflammatory disease. There is patency of the bilateral maxillary infundibuli with normal uncinate processes, ethmoid bullae, and hiatus semilunaris. Normal bilateral middle turbinates. Normal bilateral inferior turbinates. Mild right nasal septal deviation. There is patency of the bilateral nasal airways. The visualized osseous structures are normal. The visualized bilateral orbital contents are normal. CT/Sinus/Facial Bone IMPRESSION: 1. No CT evidence of acute or chronic sinusitis. 2. Mild right nasal septal deviation and bilateral patent ostiomeatal units. Electronically Signed: Alexx Leon MD at 14:29 EST ,
== END | disposition home or self-care (01) ==
LOC: CT 17:58
PROVIDERS: PCP Physician Assistant; Referring Provider Physician Assistant; Visit Provider Physician Assistant
DX: J32.0 Chronic maxillary sinusitis (principal); R51.9 Headache, unspecified
CPT/HCPCS: 70486